=== PATIENT | female | born 1990 | race Caucasian/White ===

== ENCOUNTER 2017-10-20 11:19 | Observation (INO) | payer MEDICAID, SELFPAY | END 2017-10-22 09:33 | disposition home or self-care (01) | PROVIDERS: Admitting Provider Obstetrics & Gynecology; Emergency Provider Emergency Medicine; Family Provider Nurse Practitioner Family; Visit Provider Obstetrics & Gynecology | DX: O21.0 Mild hyperemesis gravidarum (principal); Z3A.09 9 weeks gestation of pregnancy | CPT/HCPCS: 36415; 76705; 76817; 80048; 80053; 80305; 81001; 82150; 83690; 84702; 84703; 85025; 87086; 96365; 96366; 96367; 99285; G0378; J2405 ==

== ENCOUNTER 2017-11-12 12:19 | Observation (INO) | payer MEDICAID, SELFPAY ==
[2017-11-12 12:20] VITALS: PULSE 90; RESP 14; O2SAT 98; BMI 21.6
[2017-11-12 12:54] LABS: Microscopic, Urine URINE MICROSCOPIC (MICROSCOPIC)
[2017-11-12 12:57] LABS: Appearance,Urine CLOUDY (Clear); Blood, Urine Negative (Negative); Color,Urine YELLOW (Yellow); Glucose,Urine (UA) Negative (Negative); Ketones,Urine 15 (Negative); Leukocyte Esterase,Urine TRACE (Negative); Nitrate,Urine Negative (Negative); Protein,Urine TRACE (Negative)
--- NOTE | 2017-11-12 13:04 | HMH.EDABDPAI ---
ED Disposition Clinical Impression: Hyperemesis Intractable nausea and vomiting Qualifiers: Vomiting type: unspecified Qualified Code(s): R11.2 - Nausea with vomiting, unspecified Disposition: Admitted As Inpatient Condition on Discharge: Fair Time of Disposition: 14:19 - Critical Care Critical Care Time: No Attestation: On 11/12/17, the high probability of a clinically significant, sudden or life threatening deterioration of the following system(s) required my full and direct attention, intervention and personal management. The time I documented below is in addition to time spent performing reported procedures but includes the following listed in this critical care notation. Medical Decision Making - Medical Records Medical records reviewed: Yes: I reviewed the patient's medical records. Vital Signs: 11/12/17 12:20 11/12/17 15:24 Temperature 98.1 F Temperature Source Oral Pulse Rate 98 H Pulse Rate [Right Brachial] 90 Respiratory Rate 14 14 Blood Pressure 122/74 Blood Pressure Source Automatic Cuff Blood Pressure Position Sitting 02 Sat by Pulse Oximetry 98 Oxygen Delivery Method Room Air Room Air - Lab Data Lab results reviewed: Yes: I reviewed the patient's lab results. Lab Results 11/12/17 12:53: Urine Color Yellow, Urine Appearance Cloudy, Urine pH 7.0, Ur Specific [place] 1.020, Urine Protein Trace, Urine Glucose (UA) Negative, Urine Ketones 15, Urine Blood Negative, Urine Nitrate Negative, Urine Bilirubin Negative, Urine Urobilinogen 1.0, Ur Leukocyte Esterase Trace, Urine RBC None, Urine WBC Occasional, Ur Squamous Epith Cells Tntc, Urine Bacteria 3+ 11/12/17 13:10: WBC 9.2, RBC 4.70, Hgb 11.4 L, Hct 35.5 L, MCV 75.6 L, MCH 24.4 L, MCHC 32.2, RDW 15.5, Plt Count 261, MPV 7.7, Neut % (Auto) 70.8, Lymph % (Auto) 21.1, [place] % (Auto) 5.0, Eos % (Auto) 2.8, Baso % (Auto) 0.2, Neut # (Auto) 6.5, Lymph # (Auto) 1.9, [place] # (Auto) 0.5, Eos # (Auto) 0.3, Baso # (Auto) 0.0 11/12/17 13:10: Sodium 133 L, Potassium 3.0 L, Chloride 98, Carbon Dioxide 26, Anion Gap 12.0, BUN 4 L, Creatinine 0.43 L, Estimated Creat Clear 180, Estimated GFR 174, Est GFR ( Amer) 210, Glucose 107 H, Calcium 8.7, Total Bilirubin 0.4, AST 21, ALT 27, Alkaline Phosphatase 66, Total Protein 7.3, Albumin 3.4, Globulin 3.9 H, Albumin/Globulin Ratio 0.9 L, Amylase 28, Lipase 64 L, HCG, Quant [id number] H Result diagrams: 11/12/17 13:10 11/12/17 13:10 Orders (Tests/Meds): ED MEDICATIONS Discontinued Medications Generic Name Dose Route Start Last Admin Trade Name Freq PRN Reason Stop Dose Admin Acetaminophen/Codeine Phosphate 1 each 11/12/17 20:24 11/13/17 22:45 Tylenol #3 Tablet PO 12/12/17 20:23 1 each Q4HP PRN Administration Moderate Pain Al Hydrox/Mg Hydrox/Simethicone 30 ml 11/14/17 06:06 11/14/17 05:50 Maalox 30ml Udc PO 12/14/17 06:05 30 ml Q6HP PRN Administration GI Upset Doxylamine Succinate/Pyridoxine 1 tab 11/13/17 09:00 11/13/17 13:50 Diclegis 10mg-10mg Tablet PO 12/13/17 08:59 1 tab 0700,1300 NIKOLAI Administration Doxylamine Succinate/Pyridoxine 2 tab 11/13/17 21:00 Diclegis 10mg-10mg Tablet PO 12/13/17 20:59 HS NIKOLAI Famotidine 20 mg 11/13/17 09:00 11/14/17 09:42 Pepcid 20mg/2ml Vial IV 12/13/17 08:59 20 mg BID NIKOLAI Administration Famotidine 20 mg 11/12/17 13:25 11/12/17 13:37 Pepcid 20mg/2ml Vial IV 11/12/17 13:26 20 mg ONCE ONE Administration Hydromorphone HCl 1 mg 11/13/17 10:00 11/14/17 09:40 Dilaudid 4mg/Ml Syringe IV 12/13/17 09:59 1 mg Q4HP PRN Administration Moderate Pain Sodium Chloride 1,000 mls @ 999 mls/hr 11/12/17 14:45 Sod Chloride 0.9% 1000ml Bag IV 11/12/17 15:45 .Q1H1M NIKOLAI Lactated Ringer's 1,000 mls @ 125 mls/hr 11/12/17 16:30 11/12/17 16:29 Lactated Ringer's 1000 Ml Bag IV 12/12/17 16:29 125 mls/hr .Q8H NIKOLAI Administration Lactated Ringer's 1,000 mls @ 125 mls
[2017-11-12 13:08] LABS: Bilirubin,Urine Negative (Negative)
[2017-11-12 13:15] LABS: Bacteria,Urine 3+ /lpf; Squamous Epithelial Cell,Urine TNTC #/hpf (0-5); WBC,Urine Occasional #/hpf (0-3)
[2017-11-12 13:40] LABS: Basophils % 0.2 % (0.1-2.0); Eosinophils # 0.3 K/mm3 (0.0-0.4); Eosinophils % 2.8 % (0.1-12.0); Hematocrit 35.5 % (37.0-47.0); Hemoglobin 11.4 g/dL (12.2-16.2); Lymphocytes # 1.9 K/mm3 (0.7-4.5); Lymphocytes % 21.1 K/mm3 (10-50); Mean Corpuscular HGB Conc 32.2 g/dL (31.8-35.4); Mean Corpuscular Hemoglobin 24.4 pg (27.0-31.2); Mean Corpuscular Volume 75.6 fl (81-99); Mean Platelet Volume 7.7 fl (7.4-10.4); Monocytes # 0.5 K/mm3 (0.1-1.0); Neutrophils # 6.5 K/mm3 (1.8-7.8); Neutrophils % 70.8 % (37.0-80.0); Platelet Count 261 K/mm3 (142-424); Red Cell Distribution Width 15.5 % (11.5-17.5); White Blood Count 9.2 K/mm3 (4.8-10.8)
[2017-11-12 13:57] LABS: Alanine Aminotransferase 27 U/L (12-78); Albumin Level 3.4 gm/dL (3.4-5.0); Albumin/Globulin Ratio 0.9 (1.1-1.8); Alkaline Phosphatase 66 U/L (46-116); Amylase 28 U/L (25-125); Aspartate Amino Transferase 21 U/L (15-37); Bilirubin,Total 0.4 mg/dL (0.2-1.0); Blood Urea Nitrogen 4 mg/dL (7-18); Calcium 8.7 mg/dL (8.5-10.1); Carbon Dioxide 26 mmol/L (21.0-32.0); Chloride 98 mmol/L (98-107); Creatinine Clearance Estimated 180 mL/min (0-300); Creatinine,Serum 0.43 mg/dL (0.55-1.02); Estimated Glomerular Filt Rate 174 ml/min (>60); GFR (African American) 210 ML/MIN (>60); Globulin 3.9 gm/dl (1.3-3.2); Glucose 107 mg/dL (74-106); Lipase 64 u/L (73-393); Sodium 133 mmol/L (136-145); Total Protein,Serum 7.3 gm/dL (6.4-8.2)
--- NOTE | 2017-11-12 14:16 | US_ITS ---
US OB transvaginal HISTORY: ITS.REASON: abdominal pain, nausea, voimting ORDERING PHYSICIAN: Edgardo Murray MD PATIENT AGE: 27 years COMPARISON: None FINDINGS: There is a single live intrauterine gestation with a crown-rump length of 5.7 cm in an estimated gestational age of 12 weeks 3 days. Estimated due date by ultrasound is 05/24/2018. heart tones are present with an FHR 134 bpm. motion is present. Yolk sac is noted. Chorion and amnion have not yet fused. There are 2 right ovarian cyst measuring 1.7 cm each IMPRESSION: Live IUP at 12 weeks 3 days
[2017-11-12 14:51] VITALS: BMI 216307.7
[2017-11-12 15:24] VITALS: BP 122/74; PULSE 98; RESP 14; TEMP 36.7; O2SAT 98
[2017-11-12 17:07] VITALS: BP 141/83; PULSE 75; RESP 18; TEMP 36.4; O2SAT 100; BMI 21.7
--- NOTE | 2017-11-13 08:39 | HMH.ACPN2 ---
Internal Medicine - PN: Subj *Date: 11/13/17 *Time: 08:39 Interval history: She continues to have nausea, vomiting and abdominal pain. She is asking for narcotic IV pain medicine. He has been given Tylenol No. 3. She says that she threw it up as soon as she took it. She complains of pain in her upper abdomen near her gallbladder. Exam Vital signs and Labs for Last 24 Hours: Temp Pulse Resp BP Pulse Ox 97.5 F L 75 18 141/83 100 11/12/17 17:07 11/12/17 17:07 11/12/17 17:07 11/12/17 17:07 11/12/17 17:07 I & O for Last 24 hours: Intake & Output 11/10/17 11/11/17 11/12/17 11/13/17 11:59 11:59 11:59 11:59 Weight 130 lb - Constitutional no acute distress Assessment and Plan - Assessment and plan all Dx Assessment and Plan for all problems:: We will make arrangements for her to have a gallbladder ultrasound today. We will start IV Zantac. We will start diclegis as well.
[2017-11-14 08:00] VITALS: BP 115/79; PULSE 80; RESP 18; TEMP 36.7; O2SAT 100
--- NOTE | 2017-11-14 10:59 | HMH.DCSUM ---
General - General Admission date: 11/12/17 Discharge date: 11/14/17 HPI HPI: She is a 27-year-old 6 para 4 who is 12 weeks gestational age. She has had intractable nausea vomiting as well as her abdominal pain and dyspepsia. As result that she was admitted for rehydration and control of her nausea vomiting. Objective Vital signs: Temp Pulse Resp BP Pulse Ox 97.5 F L 75 18 141/83 100 11/12/17 17:07 11/12/17 17:07 11/12/17 17:07 11/12/17 17:07 11/12/17 17:07 no acute distress Hospital Course Hospital Course: She was started on IV fluids as well as IV Phenergan. We started her on Pepcid as well for her dyspepsia. She seems to be doing well and has been eating and drinking and ambulating. She has a previous history of drug abuse and is hep C positive. We have given her IV Dilaudid for her dyspepsia as well. She will receive Tylenol 3 when she goes home. I told her I would not give her any more of the strong narcotics given her past history of narcotic abuse. Meds Home Medications Medication Instructions Recorded Confirmed Type Pnv95/Iron Fum/Folic Acid 1 each PO DAILY 11/12/17 11/12/17 History [ Tablet] Allergies Allergy/AdvReac Type Severity Reaction Status Date / Time aspirin [ASPIRIN] Allergy Unknown CAUSES Verified 11/12/17 13:24 SEIZURES ketorolac [KETOROLAC] Allergy Unknown HEADACHES Verified 11/12/17 13:24 Discharge Plan - Patient Discharge Instructions ACTIVITY: Continue current activity DIET: continue same diet - Follow up Plan Disposition: Home, Self-Group Home Medications: Home Medications Medication Instructions Recorded Confirmed Type Pnv95/Iron Fum/Folic Acid 1 each PO DAILY 11/12/17 11/12/17 History [ Tablet] Prescriptions/Medication Reconciliation: New Promethazine HCl [Phenergan 12.5mg tablet] 12.5 mg PO Q4-6H PRN #20 tablet PRN Reason: Nausea Promethazine HCl [Phenergan 12.5mg Suppository] 0 mg * Q4H #12 supp.rect Acetaminophen with Codeine [Tylenol with Codeine #3 tablet] 1 tab PO Q4H PRN #20 tablet PRN Reason: Mild To Moderate Pain Continue Pnv95/Iron Fum/Folic Acid [ Tablet] 1 each PO DAILY
--- NOTE | 2017-11-18 11:53 | HMH.OBAPHP ---
OB - H&P: HPI Antepartum - History of Present Illness Chief complaint: Nausea and vomiting, dehydration - History of Present Criteria for establishing EDC:: LMP confirmed by 1st trimester US care: none Ultrasounds: normal 1st trimester US Obstetrical complications: other (Hepatitis C positive) Medical complications: none HMH History Medical History: Denies:: Cancer, Diabetes Mellitus Type 1, Diabetes Mellitus Type 2, MRSA Amputation: No Fractures: No - *Social History Educational Level: Completed High School Smoking Status: Current every day smoker Tobacco Type: cigarettes Alcohol Intake: never Substance Use Type: marijuana Last Used Substance: days (ago) Occupational Status: previously employed - Psychiatric History Expresses thoughts of harming self/others: None Suicide Plan Description: No Plan *Family Hx:: No significant family history Para: 5 Review of Systems - Constitutional Reports anorexia, Reports fatigue - *Gastrointestinal Reports vomiting Meds Home Medications Medication Instructions Recorded Confirmed Type Pnv95/Iron Fum/Folic Acid 1 each PO DAILY 11/12/17 11/12/17 History [ Tablet] Allergies Allergy/AdvReac Type Severity Reaction Status Date / Time aspirin [ASPIRIN] Allergy Unknown CAUSES Verified 11/12/17 13:24 SEIZURES ketorolac [KETOROLAC] Allergy Unknown HEADACHES Verified 11/12/17 13:24 OB - H&P: Exam - Physical Exam Vital signs: Temp Pulse Resp BP Pulse Ox 98.1 F 80 18 115/79 100 11/14/17 08:00 11/14/17 08:00 11/14/17 08:00 11/14/17 08:00 11/14/17 08:00 - Constitutional no acute distress OB - A/P Antepartum (1) Hyperemesis affecting , antepartum Status: Acute - Additional Plan Plan: expectant management (We have admitted her for rehydration and antiemetic)
== END 2017-11-14 11:00 | disposition home or self-care (01) ==
LOC: ER 14:19 → OB 16:24
PROVIDERS: Admitting Provider Obstetrics & Gynecology; Emergency Provider Emergency Medicine; Family Provider Nurse Practitioner Family; Visit Provider Nurse Practitioner Obstetrics & Gynecology
DX: O21.0 Mild hyperemesis gravidarum (principal); Z3A.12 12 weeks gestation of pregnancy; Z72.0 Tobacco use; F12.90 Cannabis use, unspecified, uncomplicated; O98.419 Viral hepatitis complicating pregnancy, unspecified trimester; B19.20 Unspecified viral hepatitis C without hepatic coma
CPT/HCPCS: 76830; 80053; 81001; 82150; 83690; 84702; 85025; 87086; 96374; 96375; 99283; G0378

== ENCOUNTER 2017-11-30 11:47 | Observation (INO) | payer MEDICAID, SELFPAY ==
[2017-11-30 11:49] VITALS: BP 123/65; PULSE 74; RESP 18; TEMP 36.8; O2SAT 97; BMI 23.3
[2017-11-30 12:36] VITALS: BMI 23.3
[2017-11-30 12:43] LABS: Appearance,Urine CLEAR (Clear); Blood, Urine Negative (Negative); Color,Urine YELLOW (Yellow); Glucose,Urine (UA) Negative (Negative); Ketones,Urine 3+ (Negative); Leukocyte Esterase,Urine Negative (Negative); Microscopic, Urine URINE MICROSCOPIC (MICROSCOPIC); Nitrate,Urine Negative (Negative); Protein,Urine 1+ (Negative); Specific Gravity, Urine >= 1.030 (1.005-1.030); Urobilinogen,Urine 0.2 EU/dl (0.2)
[2017-11-30 12:47] LABS: Basophils % 0.1 % (0.1-2.0); Eosinophils % 0.2 % (0.1-12.0); Hematocrit 36.4 % (37.0-47.0); Hemoglobin 11.7 g/dL (12.2-16.2); Lymphocytes # 1.1 K/mm3 (0.7-4.5); Lymphocytes % 9.4 K/mm3 (10-50); Mean Corpuscular Hemoglobin 24.7 pg (27.0-31.2); Mean Corpuscular Volume 77.2 fl (81-99); Mean Platelet Volume 7.5 fl (7.4-10.4); Monocytes # 0.2 K/mm3 (0.1-1.0); Monocytes % 2.1 % (1.7-9.3); Neutrophils # 10.2 K/mm3 (1.8-7.8); Neutrophils % 88.2 % (37.0-80.0); Platelet Count 294 K/mm3 (142-424); Red Blood Count 4.72 M/mm3 (4.20-5.40); Red Cell Distribution Width 16.4 % (11.5-17.5); White Blood Count 11.6 K/mm3 (4.8-10.8)
[2017-11-30 12:50] LABS: Bilirubin,Urine Negative (Negative); Urine Pregnancy, HCG Qual. Positive (Negative)
[2017-11-30 12:52] LABS: MANUAL DIFFERENTIAL MANUAL DIFFERENTIAL (MANUAL DIFF)
[2017-11-30 12:56] LABS: Alanine Aminotransferase 24 U/L (12-78); Albumin Level 3.7 gm/dL (3.4-5.0); Albumin/Globulin Ratio 0.9 (1.1-1.8); Alkaline Phosphatase 68 U/L (46-116); Amylase 31 U/L (25-125); Anion Gap 14.9 mEq/L (5-15); Aspartate Amino Transferase 16 U/L (15-37); Bilirubin,Total 0.7 mg/dL (0.2-1.0); Blood Urea Nitrogen 7 mg/dL (7-18); Calcium 8.9 mg/dL (8.5-10.1); Carbon Dioxide 24 mmol/L (21.0-32.0); Chloride 99 mmol/L (98-107); Creatinine Clearance Estimated 185 mL/min (0-300); Creatinine,Serum 0.45 mg/dL (0.55-1.02); Estimated Glomerular Filt Rate 165 ml/min (>60); GFR (African American) 199 ML/MIN (>60); Globulin 4.3 gm/dl (1.3-3.2); Glucose 109 mg/dL (74-106); Lipase 70 u/L (73-393); Sodium 135 mmol/L (136-145)
[2017-11-30 12:57] LABS: Bacteria,Urine 4+ /lpf; Mucus,Urine 3+ /lpf; WBC,Urine Occasional #/hpf (0-3)
[2017-11-30 13:00] LABS: Potassium 2.9 mmoL/L (3.5-5.1)
--- NOTE | 2017-11-30 13:20 | PC.NURSE ---
Received report from Jose Florez RN in the ER at this time.
[2017-11-30 13:24] VITALS: BP 124/65; PULSE 73; RESP 16; TEMP 36.8; O2SAT 97
[2017-11-30 13:30] VITALS: BP 120/68; PULSE 88; RESP 18; TEMP 36.7; O2SAT 98
--- NOTE | 2017-11-30 13:40 | PC.NURSE ---
CALLED DR. BENSON TO NOTIFY HIM OF PATIENTS POTASSIUM LEVEL OF 2.9. NOTIFIED HIM OF PATIENTS PAIN A 08/04 AND THAT STATED SHE HAS ABDOMINAL PAIN. MD STATED SHE CAN HAVE TYLENOL 650MG PO EVERY 4 HOURS, PEPCID 20MG IV DAILY FOR STOMACH PAIN, START 0.9% NS WITH 20 POTASSIUM @125ML/HR AND DAILY BAG OF RALLY PACK. R/V
[2017-11-30 14:12] LABS: Lymphocytes % 10 % (10-50); Monocytes % 2 % (2-9); Neutrophils % 87 % (42-76); Platelet Estimate Normal; RBC Morphology Normal; Total Cells Counted 100
[2017-11-30 14:20] VITALS: O2SAT 100
--- NOTE | 2017-11-30 16:02 | HMH.EDNVD ---
ED Disposition Clinical Impression: Intractable Nausea/Vomiting, Dehydration Disposition: Admitted As Inpatient Condition on Discharge: Good Time of Disposition: 14:30 - Critical Care Critical Care Time: No Attestation: On 11/30/17, the high probability of a clinically significant, sudden or life threatening deterioration of the following system(s) required my full and direct attention, intervention and personal management. The time I documented below is in addition to time spent performing reported procedures but includes the following listed in this critical care notation. Medical Decision Making - Medical Records Medical records reviewed: Yes: I reviewed the patient's medical records. Vital Signs: 11/30/17 11:49 11/30/17 13:24 Temperature 98.2 F 98.2 F Temperature Source Oral Pulse Rate 73 Pulse Rate [Right Brachial] 74 Respiratory Rate 18 16 Blood Pressure 124/65 Blood Pressure [Right Arm] 123/65 Blood Pressure Mean [Right Arm] 84 Blood Pressure Source [Right Arm] Automatic Cuff Blood Pressure Position [Right Arm] Sitting 02 Sat by Pulse Oximetry 97 Oxygen Delivery Method Room Air - Lab Data Lab results reviewed: Yes: I reviewed the patient's lab results. Lab Results 11/30/17 12:35: Urine Color Yellow, Urine Appearance Clear, Urine pH 6.0, Ur Specific [place] >= 1.030, Urine Protein 1+, Urine Glucose (UA) Negative, Urine Ketones 3+, Urine Blood Negative, Urine Nitrate Negative, Urine Bilirubin Negative, Urine Urobilinogen 0.2, Ur Leukocyte Esterase Negative, Urine RBC None, Urine WBC Occasional, Ur Squamous Epith Cells 3-5, Urine Bacteria 4+, Urine Mucus 3+ 11/30/17 12:35: WBC 11.6 H, RBC 4.72, Hgb 11.7 L, Hct 36.4 L, MCV 77.2 L, MCH 24.7 L, MCHC 32.0, RDW 16.4, Plt Count 294, MPV 7.5, Neut % (Auto) 88.2 H, Lymph % (Auto) 9.4 L, [place] % (Auto) 2.1, Eos % (Auto) 0.2, Baso % (Auto) 0.1, Neut # (Auto) 10.2 H, Lymph # (Auto) 1.1, [place] # (Auto) 0.2, Eos # (Auto) 0.0, Baso # (Auto) 0.0, Total Counted 100, Neutrophils % (Manual) 87 H, Lymphocytes % (Manual) 10, Monocytes % (Manual) 2, Metamyelocytes % 1.0, Platelet Estimate Normal, RBC Morphology Normal 11/30/17 12:35: Urine HCG, Qual Positive 11/30/17 12:35: Sodium 135 L, Potassium 2.9 L*, Chloride 99, Carbon Dioxide 24, Anion Gap 14.9, BUN 7, Creatinine 0.45 L, Estimated Creat Clear 185, Estimated GFR 165, Est GFR ( Amer) 199, Glucose 109 H, Calcium 8.9, Total Bilirubin 0.7, AST 16, ALT 24, Alkaline Phosphatase 68, Total Protein 8.0, Albumin 3.7, Globulin 4.3 H, Albumin/Globulin Ratio 0.9 L, Amylase 31, Lipase 70 L Result diagrams: 11/30/17 12:35 11/30/17 12:35 Orders (Tests/Meds): ED MEDICATIONS Generic Name Dose Route Start Last Admin Trade Name Freq PRN Reason Stop Dose Admin Acetaminophen 650 mg 11/30/17 15:08 Acetaminophen 325mg Tab PO 12/30/17 13:47 Q4HP PRN Mild to Moderate Pain Doxylamine Succinate/Pyridoxine 1 tab 11/30/17 21:00 Diclegis 10mg-10mg Tablet PO 12/30/17 20:59 BID NIKOLAI Famotidine 20 mg 11/30/17 21:00 Pepcid 20mg/2ml Vial IV 12/30/17 20:59 BID NIKOLAI Folic Acid 1 mg 12/01/17 09:00 Folic Acid 1mg Tablet PO 12/31/17 08:59 DAILY [facility] Potassium Chloride/Sodium Chloride 1,000 mls @ 125 mls/hr 11/30/17 15:08 Kcl 20 Meq In Ns 1,000 Ml Iv Soln IV 12/30/17 13:59 .Q8H NIKOLAI Multivitamins 10 ml/ Thiamine 1,015 mls @ 125 mls/hr 11/30/17 15:15 11/30/17 15:25 HCl 100 mg/ Magnesium Sulfate IV 12/30/17 15:14 125 mls/hr 2 gm/ Lactated Ringer's DAILY NIKOLAI Administration Multivit/Folic Acid/Iron 1 each 11/30/17 17:00 Mvi W/Iron Tablet PO 12/30/17 16:59 1700 [facility] Promethazine HCl 12.5 mg 11/30/17 15:08 Phenergan 25mg/Ml 1ml Vial IV 12/30/17 12:38 Q4HP PRN Nausea And Vomiting Sodium Chloride 25 ml 11/30/17 15:08 Sod Chloride 0.9% 25ml Bag IV 12/30/17 15:07 NEEDED PRN for Use
--- NOTE | 2017-11-30 16:05 | ED_ITS ---
ED Disposition Clinical Impression: Intractable Nausea/Vomiting, Dehydration Disposition: Admitted As Inpatient Condition on Discharge: Good Time of Disposition: 14:30 - Critical Care Critical Care Time: No Attestation: On 11/30/17, the high probability of a clinically significant, sudden or life threatening deterioration of the following system(s) required my full and direct attention, intervention and personal management. The time I documented below is in addition to time spent performing reported procedures but includes the following listed in this critical care notation. Medical Decision Making - Medical Records Medical records reviewed: Yes: I reviewed the patient's medical records. Vital Signs: 11/30/17 11:49 11/30/17 13:24 Temperature 98.2 F 98.2 F Temperature Source Oral Pulse Rate 73 Pulse Rate [Right Brachial] 74 Respiratory Rate 18 16 Blood Pressure 124/65 Blood Pressure [Right Arm] 123/65 Blood Pressure Mean [Right Arm] 84 Blood Pressure Source [Right Arm] Automatic Cuff Blood Pressure Position [Right Arm] Sitting 02 Sat by Pulse Oximetry 97 Oxygen Delivery Method Room Air - Lab Data Lab results reviewed: Yes: I reviewed the patient's lab results. Lab Results 11/30/17 12:35: Urine Color Yellow, Urine Appearance Clear, Urine pH 6.0, Ur Specific [place] >= 1.030, Urine Protein 1+, Urine Glucose (UA) Negative, Urine Ketones 3+, Urine Blood Negative, Urine Nitrate Negative, Urine Bilirubin Negative, Urine Urobilinogen 0.2, Ur Leukocyte Esterase Negative, Urine RBC None , Urine WBC Occasional, Ur Squamous Epith Cells 3-5, Urine Bacteria 4+, Urine Mucus 3+ 11/30/17 12:35: WBC 11.6 H, RBC 4.72, Hgb 11.7 L, Hct 36.4 L, MCV 77.2 L, MCH 24.7 L, MCHC 32.0, RDW 16.4, Plt Count 294, MPV 7.5, Neut % (Auto) 88.2 H, Lymph % (Auto) 9.4 L, [place] % (Auto) 2.1, Eos % (Auto) 0.2, Baso % (Auto) 0.1, Neut # (Auto) 10.2 H, Lymph # (Auto) 1.1, [place] # (Auto) 0.2, Eos # (Auto) 0.0, Baso # (Auto) 0.0, Total Counted 100, Neutrophils % (Manual) 87 H, Lymphocytes % (Manual) 10, Monocytes % (Manual) 2, Metamyelocytes % 1.0, Platelet Estimate Normal, RBC Morphology Normal 11/30/17 12:35: Urine HCG, Qual Positive 11/30/17 12:35: Sodium 135 L, Potassium 2.9 L*, Chloride 99, Carbon Dioxide 24, Anion Gap 14.9, BUN 7, Creatinine 0.45 L, Estimated Creat Clear 185, Estimated GFR 165, Est GFR ( Amer) 199, Glucose 109 H, Calcium 8.9, Total Bilirubin 0.7, AST 16, ALT 24, Alkaline Phosphatase 68, Total Protein 8.0, Albumin 3.7, Globulin 4.3 H, Albumin/Globulin Ratio 0.9 L, Amylase 31, Lipase 70 L Result diagrams: 11/30/17 12:35 11/30/17 12:35 Orders (Tests/Meds): ED MEDICATIONS Generic Name Dose Route Start Last Admin Trade Name Freq PRN Reason Stop Dose Admin Acetaminophen 650 mg 11/30/17 15:08 Acetaminophen 325mg Tab PO 12/30/17 13:47 Q4HP PRN Mild to Moderate Pain Doxylamine Succinate/Pyridoxine 1 tab 11/30/17 21:00 Diclegis 10mg-10mg Tablet PO 12/30/17 20:59 BID NIKOLAI Famotidine 20 mg 11/30/17 21:00 Pepcid 20mg/2ml Vial IV 12/30/17 20:59 BID NIKOLAI Folic Acid 1 mg 12/01/17 09:00 Folic Acid 1mg Tablet PO 12/31/17 08:59 DAILY NIKOLAI Potassium Chloride/Sodium Chloride 1,000 mls @ 125 mls/hr 11/30/17 15:08 Kcl 20 Meq In Ns 1,000 Ml Iv Soln IV 12/30/17 13:59
--- NOTE | 2017-11-30 16:29 | PC.NURSE ---
PATIENT IS A NEW ADMISSION FROM ER. PT. HAS COMPLAINED OF ABDOMINAL PAIN THROUGHOUT THE AFTERNOON. PT. RATES PAIN A 10/10 WHILE LYING IN BED. REPORTS NAUSEA AND IS REQUESTING PAIN MEDICATION. EXPLAINED TO PATIENT THAT SHE HAS TYLENOL ORDERED. PT. DENIED THIS MEDICATION. LUNGS WERE CTA AND BOWEL SOUNDS HYPOACTIVE. PT. REPORTS STOMACH TO BE TENDER TO TOUCH. EDUCATED PATIENT THAT SHE SHOULD NOT TRY TO KEEP EATING OR DRINKING IF SHE IS VOMITING EVERYTHING UP. STARTED PATIENTS RALLY PACK THIS AFTERNOON. PATIENT HAS RESTED ON AND OFF. PT. REQUESTING ANOTHER SHOWER AT THIS TIME, EXPLAINED THAT WE NEEDED TO GET THE RALLY PACK IN HER FIRST. VITALS REMAINED STABLE. CALL LIGHT WITHIN REACH AND SAFETY MEASURES IN PLACE. WILL CONTINUE TO MONITOR.
--- NOTE | 2017-11-30 16:29 | HMH.OBAPHP ---
OB - H&P: HPI Antepartum - History of Present Illness Chief complaint: Intractable nausea vomiting and dehydration - History of Present Criteria for establishing EDC:: LMP confirmed by 1st trimester US care: limited care Ultrasounds: normal 1st trimester US Obstetrical complications: hyperemesis Medical complications: none HMH History Medical History: Denies:: Cancer, Diabetes Mellitus Type 1, Diabetes Mellitus Type 2, Internal Pacemaker, MRSA Other Surgeries: No: Pacemaker Amputation: No Fractures: No - *Social History Educational Level: Attended High School Smoking Status: Current every day smoker Tobacco Type: cigarettes Alcohol Intake: never Substance Use Type: marijuana Last Used Substance: hours (ago) Occupational Status: previously employed Household Members: children - Psychiatric History Expresses thoughts of harming self/others: None Suicide Plan Description: No Plan *Family Hx:: No significant family history Review of Systems - Constitutional Reports anorexia - *Gastrointestinal Reports abdominal pain, Reports change in bowel habits, Reports heartburn, Reports heartburn Meds Home Medications Medication Instructions Recorded Confirmed Type Pnv95/Iron Fum/Folic Acid 1 each PO DAILY 11/12/17 11/30/17 History [ Tablet] Promethazine HCl [Phenergan 12.5mg 12.5 mg RC Q4H 11/30/17 11/30/17 History Suppository] raNITIdine HCl [Ranitidine HCl] 150 mg PO BID 11/30/17 11/30/17 History Allergies Allergy/AdvReac Type Severity Reaction Status Date / Time aspirin [ASPIRIN] Allergy Unknown CAUSES Verified 11/12/17 13:24 SEIZURES ketorolac [KETOROLAC] Allergy Unknown HEADACHES Verified 11/12/17 13:24 OB - H&P: Exam - Physical Exam Vital signs: Temp Pulse Resp BP Pulse Ox 98.1 F 88 18 120/68 100 11/30/17 13:30 11/30/17 13:30 11/30/17 13:30 11/30/17 13:30 11/30/17 14:20 - Constitutional no acute distress - Routine HEENT Exam Head: Present: normocephalic - Routine Neck Exam Present: supple OB - A/P Antepartum (1) Hypokalemia due to loss of potassium Current visit: Yes Status: Acute - Additional Plan Plan: other (We will admit her for rehydration and control of nausea vomiting)
[2017-11-30 16:30] VITALS: BP 129/81; PULSE 79; RESP 16; TEMP 36.7; O2SAT 100
[2017-11-30 16:51] LABS: Amphetamine/Metha Screen,Urine Negative ng/mL (<1000); Barbiturates Screen,Urine Negative ng/mL (<200); Benzodiazepines Screen,Urine Negative ng/mL (200); Cannabinoid Screen,Urine Positive ng/mL (<50); Cocaine Screen,Urine Negative ng/g (<300); Methadone Screen,Urine Negative ng/mL (<300); Opiate Screen,Urine Positive ng/mL (<300); Phencyclidine Screen,Urine Negative ng/mL (<25)
--- NOTE | 2017-11-30 16:55 | PC.NURSE ---
DR. BENSON STATED TO DO FHT DAILY ON PATIENT. R/V MD AT BEDSIDE
--- NOTE | 2017-11-30 17:40 | PC.NURSE ---
FHT AUSCULTATED USING DOPPLER AROUND 140-145'S.
--- NOTE | 2017-11-30 17:40 | PC.NURSE ---
WHILE TAKING DINNER TRAY TO PATIENT, SHE STATES SHE IS FEELING NAUSEOUS. ORDERED PROMETHAZINE GIVEN IV 12.5MG OVER 15 MINUTES. PATIENT ALSO REQUESTS A HEATING PAD. HEATING PAD TAKEN TO PATIENT. WHILE TURNING HEATING PAD ON PATIENT STATES CAN YOU JUST WRAP THIS IV UP SO I CAN SHOWER. TOLD PATIENT WE WOULD HAVE TO WAIT UNTIL THE PROMETHAZINE WAS FINISHED AND THAT THE PROMETHAZINE MAY MAKE YOU DROWSY THAT IS WASN'T BEST FOR HER TO GET IN THE SHOWER. WILL REINFORCE NEEDED.
--- NOTE | 2017-11-30 18:58 | PC.NURSE ---
HANDOFF GIVEN TO JOHN LYONS
--- NOTE | 2017-11-30 19:35 | PC.NURSE ---
REPORT RECEIVED FROM ELOY KIRKPATRICK.
--- NOTE | 2017-11-30 20:40 | PC.NURSE ---
PHENERGAN 12.5MG IVPB (25MLS NS) HUNG PER PT REQUEST FOR NAUSEA.
--- NOTE | 2017-11-30 21:35 | PC.NURSE ---
SPOKE WITH CONCERNING PT WANTING SOMETHING STRONGER THAN TYLENOL FOR PAIN. PHONE ORDER RECEIVED FOR PERCOCET 5/325MG PO Q4HR PRN. ORDER REPEATED AND VERIFIED. PT SLEEPING AT THIS TIME..
--- NOTE | 2017-11-30 22:50 | PC.NURSE ---
PT RANG OUT FOR PAIN MEDICATION. HAD BEEN UP TO SHOWER AGAIN.. RATES PAIN AT 10/10 ON PAIN SCALE AND WAS MEDICATED WITH PERCOCET 5/325 1 TAB PO.
--- NOTE | 2017-11-30 23:20 | PC.NURSE ---
PT ASLEEP ON STOMACH UPON ENTERING ROOM. PAIN NOW 0/10.
--- NOTE | 2017-12-01 00:35 | PC.NURSE ---
IV MULTI-VITAMIN RALLY BAG INFUSION COMPLETE. IV FLUIDS SWITCHED BACK OVER AT THIS TIME.
[2017-12-01 01:51] VITALS: BMI 25.4
[2017-12-01 08:00] VITALS: BP 142/89; PULSE 80; RESP 17; TEMP 36.8; O2SAT 99
--- NOTE | 2017-12-01 08:20 | HMH.ACPN2 ---
Internal Medicine - PN: Subj *Date: 12/01/17 *Time: 08:20 Interval history: She continues to have some nausea and vomiting. She complains of epigastric pain. She denies any fever or chills. She did reasonably well overnight and did have some gagging this morning. She is however eating and drinking and ambulating. Exam Vital signs and Labs for Last 24 Hours: Temp Pulse Resp BP Pulse Ox 98.1 F 79 16 129/81 100 11/30/17 16:30 11/30/17 16:30 11/30/17 16:30 11/30/17 16:30 11/30/17 16:30 I & O for Last 24 hours: Intake & Output 11/28/17 11/29/17 11/30/17 12/01/17 11:59 11:59 11:59 11:59 Intake Total 1405 / 1405 Balance 1405 / 1405 Weight 148 lb - Constitutional no acute distress Assessment and Plan (1) Hypokalemia due to loss of potassium Current visit: Yes Status: Acute Category: Medical Code(s): E87.6 - Hypokalemia - Assessment and plan all Dx Assessment and Plan for all problems:: We will continue to observe her and give her fluids. We will give her IV Phenergan. I am limiting the amount of narcotics she is receiving because of her past history of narcotic abuse.
--- NOTE | 2017-12-01 09:29 | PC.NURSE ---
pt requested up to shower, states makes me feel alittle better , wrapped IV , pt in shower
--- NOTE | 2017-12-01 10:09 | PC.NURSE ---
pt called out reporting IV leaking fluid; site unremarkable but leaking and not blood return noted; Will restart IV when finishing shower
--- NOTE | 2017-12-01 11:05 | PC.NURSE ---
Dr. Murray requested to find out what drugs she was taking, why tox screen positive. Discussed with patient; she reports smokes pot and was taking tynelol #3 that he prescribed from last visit from hospital admission.
[2017-12-01 11:09] LABS: Anion Gap 16.1 mEq/L (5-15); Blood Urea Nitrogen 4 mg/dL (7-18); Carbon Dioxide 24 mmol/L (21.0-32.0); Chloride 99 mmol/L (98-107); Creatinine Clearance Estimated 209 mL/min (0-300); Creatinine,Serum 0.42 mg/dL (0.55-1.02); Estimated Glomerular Filt Rate 178 ml/min (>60); GFR (African American) 216 ML/MIN (>60); Glucose 95 mg/dL (74-106); Potassium 3.1 mmoL/L (3.5-5.1); Sodium 136 mmol/L (136-145)
[2017-12-01 18:30] VITALS: BP 148/90; PULSE 88; RESP 16; TEMP 36.8; O2SAT 97
--- NOTE | 2017-12-01 18:56 | PC.NURSE ---
pt has ongoing been turning silence off IV pump, and because of issue, taking more time to run Multivitamins in, requested to call us when pump is off to get restarted . Pt verbalized understanding.
[2017-12-02 08:00] VITALS: BP 129/86; PULSE 89; TEMP 36.8; O2SAT 99
--- NOTE | 2017-12-02 08:46 | HMH.DCSUM ---
General - General Admission date: 11/30/17 Discharge date: 12/02/17 HPI HPI: She is a 27-year-old 6 para 4 aborta 1 who is 13 weeks gestational age. She came in with severe nausea vomiting and dehydration. She had hypokalemia as well. As result of that she was admitted for IV fluids. Objective Vital signs: Temp Pulse Resp BP Pulse Ox 98.3 F 89 16 129/86 99 12/02/17 08:00 12/02/17 08:00 12/01/17 18:30 12/02/17 08:00 12/02/17 08:00 no acute distress Hospital Course Hospital Course: She received IV fluids as well as IV potassium. She has received that as well. She is doing much better this morning and will be discharged home. Results Labs on day of discharge: Labs from last 24 hours 12/01/17 10:45 Sodium 136 Potassium 3.1 L Chloride 99 Carbon Dioxide 24 Anion Gap 16.1 H BUN 4 L D Creatinine 0.42 L Estimated Creat Clear 209 Estimated GFR 178 Est GFR ( Amer) 216 Glucose 95 DS: Diagnosis - Discharge Diagnosis (1) Hypokalemia due to loss of potassium Status: Acute Meds Home Medications Medication Instructions Recorded Confirmed Type Pnv95/Iron Fum/Folic Acid 1 each PO DAILY 11/12/17 11/30/17 History [ Tablet] Promethazine HCl [Phenergan 12.5mg 12.5 mg RC Q4HP PRN 11/30/17 12/01/17 History Suppository] raNITIdine HCl [Ranitidine HCl] 150 mg PO BID 11/30/17 11/30/17 History Acetaminophen with Codeine 1 tab PO Q4HP PRN 12/01/17 12/01/17 History [Tylenol with Codeine #3 tablet] Allergies Allergy/AdvReac Type Severity Reaction Status Date / Time aspirin [ASPIRIN] Allergy Unknown CAUSES Verified 11/12/17 13:24 SEIZURES ketorolac [KETOROLAC] Allergy Unknown HEADACHES Verified 11/12/17 13:24 Discharge Plan - Patient Discharge Instructions ACTIVITY: Continue current activity DIET: continue same diet Patient Instructions: DI for Diarrhea and Traveler's Diarrhea -- Adult, DI for Diarrhea and Traveler's Diarrhea -- Child, DI for Nausea -- Adult, DI for Nausea -- Child - Follow up Plan Follow up with: Cheryle Vargas [Primary Care Provider] - Disposition: Home, Self-Half-Way Medications: Home Medications Medication Instructions Recorded Confirmed Type Pnv95/Iron Fum/Folic Acid 1 each PO DAILY 11/12/17 11/30/17 History [ Tablet] Promethazine HCl [Phenergan 12.5mg 12.5 mg RC Q4HP PRN 11/30/17 12/01/17 History Suppository] raNITIdine HCl [Ranitidine HCl] 150 mg PO BID 11/30/17 11/30/17 History Acetaminophen with Codeine 1 tab PO Q4HP PRN 12/01/17 12/01/17 History [Tylenol with Codeine #3 tablet] Prescriptions/Medication Reconciliation: Continue Promethazine HCl [Phenergan 12.5mg tablet] 12.5 mg PO Q4-6H PRN #20 tab PRN Reason: Nausea raNITIdine HCl [Ranitidine HCl] 150 mg PO BID Pnv95/Iron Fum/Folic Acid [ Tablet] 1 each PO DAILY Promethazine HCl [Phenergan 12.5mg Suppository] 12.5 mg RC Q4HP PRN #12 supp.rect PRN Reason: nausea/vomiting Discontinued Acetaminophen with Codeine [Tylenol with Codeine #3 tablet] 1 tab PO Q4HP PRN PRN Reason: Mild To Moderate Pain
--- NOTE | 2017-12-02 09:16 | PC.NURSE ---
Completed discharge instructions with patient, pt verbalized understanding and had no questions at this time, awaiting ride to go home
== END 2017-12-02 10:05 | disposition home or self-care (01) ==
LOC: ER 12:35 → OB 13:24
PROVIDERS: Admitting Provider Nurse Practitioner Obstetrics & Gynecology; Emergency Provider Emergency Medicine; Family Provider Nurse Practitioner Family; PCP Nurse Practitioner Pediatrics; Visit Provider Nurse Practitioner Obstetrics & Gynecology
DX: O21.1 Hyperemesis gravidarum with metabolic disturbance (principal); Z3A.13 13 weeks gestation of pregnancy
CPT/HCPCS: 80048; 80053; 80305; 81001; 81025; 82150; 83690; 85007; 85025; 87086; 93971; 96365; 96375; 99281; 99291; G0378

== ENCOUNTER 2017-12-30 11:59 | Observation (INO) | payer MEDICAID, SELFPAY ==
[2017-12-30 12:09] VITALS: BP 147/85; PULSE 88; RESP 20; TEMP 36.8; O2SAT 98; BMI 22.9
--- NOTE | 2017-12-30 12:17 | HMH.EDGENADL ---
ED Disposition Clinical Impression: Vomiting affecting , Dehydration, Hypokalemia Disposition: Still a Patient Condition on Discharge: Fair - Critical Care Critical Care Time: No Attestation: On , the high probability of a clinically significant, sudden or life threatening deterioration of the following system(s) required my full and direct attention, intervention and personal management. The time I documented below is in addition to time spent performing reported procedures but includes the following listed in this critical care notation. Medical Decision Making Vital Signs: 12/30/17 12:09 12/30/17 12:31 Temperature 98.3 F Temperature Source Oral Pulse Rate [Right Brachial] 88 80 Respiratory Rate 20 20 Blood Pressure [Right Arm] 147/85 112/78 Blood Pressure Mean [Right Arm] 105 89 Blood Pressure Source [Right Arm] Automatic Cuff Automatic Cuff Blood Pressure Position [Right Arm] Sitting Supine 02 Sat by Pulse Oximetry 98 100 Oxygen Delivery Method Room Air Room Air - Lab Data Lab Results 12/30/17 12:20: Urine Color Yellow, Urine Appearance Cloudy, Urine pH 7.5, Ur Specific [place] 1.015, Urine Protein Negative, Urine Glucose (UA) Negative, Urine Ketones 2+, Urine Blood Negative, Urine Nitrate Negative, Urine Bilirubin Negative, Urine Urobilinogen 0.2, Ur Leukocyte Esterase 2+ A, Urine RBC None, Urine WBC 5-10, Ur Squamous Epith Cells 10-20, Urine Bacteria 2+ 12/30/17 12:20: WBC 10.6, RBC 4.23, Hgb 10.9 L, Hct 33.9 L, MCV 80.0 L, MCH 25.7 L, MCHC 32.1, RDW 16.4, Plt Count 277, MPV 7.9, Neut % (Auto) 79.3, Lymph % (Auto) 15.3, [place] % (Auto) 4.1, Eos % (Auto) 1.4, Baso % (Auto) 0.1, Neut # (Auto) 8.4 H, Lymph # (Auto) 1.6, [place] # (Auto) 0.4, Eos # (Auto) 0.1, Baso # (Auto) 0.0 12/30/17 12:20: Sodium 136, Potassium 3.0 L, Chloride 102, Carbon Dioxide 25, Anion Gap 12.0, BUN 3 L, Creatinine 0.44 L, Estimated Creat Clear 186, Estimated GFR 169, Est GFR ( Amer) 205, Glucose 103, Calcium 8.5, Total Bilirubin 0.3, AST 17, ALT 22, Alkaline Phosphatase 55, Total Protein 7.0, Albumin 3.2 L, Globulin 3.8 H, Albumin/Globulin Ratio 0.8 L 12/30/17 12:20: Lipase 57 L 12/30/17 12:30: Urine Opiates Screen Negative, Ur Barbituates Screen Negative, Ur Phencyclidine Scrn Negative, Ur Amphetamines Screen Negative, U Methamphetamines Scrn Negative, U Benzodiazepines Scrn Negative, Urine Cocaine Screen Negative, U Marijuana (THC) Screen Positive H Result diagrams: 12/30/17 12:20 12/30/17 12:20 Orders (Tests/Meds): ED MEDICATIONS Generic Name Dose Route Start Last Admin Trade Name Freq PRN Reason Stop Dose Admin Famotidine 20 mg 12/30/17 16:45 Pepcid 20mg/2ml Vial IV 01/29/18 16:44 DAILY NIKOLAI Potassium Chloride/Sodium Chloride 1,000 mls @ 100 mls/hr 12/30/17 14:45 12/30/17 15:11 Kcl 40 Meq-Ns 1,000ml Iv Soln IV 01/29/18 14:44 100 mls/hr .Q10H NIKOLAI Administration Magnesium Sulfate 2 gm/ 1,015 mls @ 333 mls/hr 12/30/17 16:30 Thiamine HCl 100 mg/ IV 12/30/17 19:32 Multivitamins 10 ml/ Lactated ONCE ONE Ringer's Lactated Ringer's 1,000 mls @ 125 mls/hr 12/30/17 16:30 Lactated Ringer's 1000 Ml Bag IV 01/29/18 16:29 .Q8H NIKOLAI Metoclopramide HCl 5 mg 12/30/17 17:00 Reglan 5mg Tablet PO 01/29/18 16:59 QID NIKOLAI Ondansetron HCl 8 mg 12/30/17 16:31 Zofran 4mg/2ml Vial IV 01/29/18 16:30 Q6HP PRN Nausea And Vomiting Oxycodone/Acetaminophen 1 each 12/30/17 16:36 Percocet 5/325mg Tablet PO 01/29/18 16:35 Q8HP PRN Moderate to Severe Pain Potassium Chloride 10 meq 12/30/17 21:00 Klor-Con 10meq Tablet PO 01/29/18 20:59 BID NIKOLAI Promethazine HCl 12.5 mg 12/30/17 16:31 Phenergan 25mg/Ml 1ml Vial IV 01/29/18 16:30 Q4HP PRN Nausea And Vomiting Sodium Chloride 8 ml 12/30/17 16:45 Saline Flush 10ml Syringe IV 01/29/18 16:44 DAILY NIKOLAI Discontinued Medications Raven
[2017-12-30 12:31] VITALS: BP 112/78; PULSE 80; RESP 20; O2SAT 100
[2017-12-30 12:33] LABS: Basophils % 0.1 % (0.1-2.0); Eosinophils # 0.1 K/mm3 (0.0-0.4); Eosinophils % 1.4 % (0.1-12.0); Hematocrit 33.9 % (37.0-47.0); Hemoglobin 10.9 g/dL (12.2-16.2); Lymphocytes # 1.6 K/mm3 (0.7-4.5); Lymphocytes % 15.3 K/mm3 (10-50); Mean Corpuscular HGB Conc 32.1 g/dL (31.8-35.4); Mean Corpuscular Hemoglobin 25.7 pg (27.0-31.2); Mean Platelet Volume 7.9 fl (7.4-10.4); Microscopic, Urine URINE MICROSCOPIC (MICROSCOPIC); Monocytes # 0.4 K/mm3 (0.1-1.0); Monocytes % 4.1 % (1.7-9.3); Neutrophils # 8.4 K/mm3 (1.8-7.8); Neutrophils % 79.3 % (37.0-80.0); Platelet Count 277 K/mm3 (142-424); Red Blood Count 4.23 M/mm3 (4.20-5.40); Red Cell Distribution Width 16.4 % (11.5-17.5); White Blood Count 10.6 K/mm3 (4.8-10.8)
[2017-12-30 12:36] LABS: Appearance,Urine CLOUDY (Clear); Bilirubin,Urine Negative (Negative); Blood, Urine Negative (Negative); Color,Urine YELLOW (Yellow); Glucose,Urine (UA) Negative (Negative); Ketones,Urine 2+ (Negative); Leukocyte Esterase,Urine 2+ (Negative); Nitrate,Urine Negative (Negative); PH,Urine 7.5 (5.0-8.5); Protein,Urine Negative (Negative); Specific Gravity, Urine 1.015 (1.005-1.030); Urobilinogen,Urine 0.2 EU/dl (0.2)
[2017-12-30 12:45] LABS: Alanine Aminotransferase 22 U/L (12-78); Albumin Level 3.2 gm/dL (3.4-5.0); Albumin/Globulin Ratio 0.8 (1.1-1.8); Alkaline Phosphatase 55 U/L (46-116); Aspartate Amino Transferase 17 U/L (15-37); Bilirubin,Total 0.3 mg/dL (0.2-1.0); Blood Urea Nitrogen 3 mg/dL (7-18); Calcium 8.5 mg/dL (8.5-10.1); Carbon Dioxide 25 mmol/L (21.0-32.0); Chloride 102 mmol/L (98-107); Creatinine Clearance Estimated 186 mL/min (0-300); Creatinine,Serum 0.44 mg/dL (0.55-1.02); Estimated Glomerular Filt Rate 169 ml/min (>60); GFR (African American) 205 ML/MIN (>60); Globulin 3.8 gm/dl (1.3-3.2); Glucose 103 mg/dL (74-106); Sodium 136 mmol/L (136-145)
[2017-12-30 12:58] LABS: Bacteria,Urine 2+ /lpf
--- NOTE | 2017-12-30 13:01 | PC.NURSE ---
heart rate 150
[2017-12-30 13:48] LABS: Lipase 57 u/L (73-393)
[2017-12-30 13:56] LABS: Amphetamine/Metha Screen,Urine Negative ng/mL (<1000); Barbiturates Screen,Urine Negative ng/mL (<200); Benzodiazepines Screen,Urine Negative ng/mL (200); Cannabinoid Screen,Urine Positive ng/mL (<50); Cocaine Screen,Urine Negative ng/g (<300); Methadone Screen,Urine Negative ng/mL (<300); Opiate Screen,Urine Negative ng/mL (<300); Phencyclidine Screen,Urine Negative ng/mL (<25)
--- NOTE | 2017-12-30 14:45 | PC.NURSE ---
Per ER MD, Dr. Murray stated to him he would place admission orders on pt.
--- NOTE | 2017-12-30 15:50 | PC.NURSE ---
contacting Dr. Murray's office to check on status of admission orders on pt.
--- NOTE | 2017-12-30 15:57 | PC.NURSE ---
NO answer at Dr. Murray's office, photocomposing machine operator paging him.
--- NOTE | 2017-12-30 15:59 | PC.NURSE ---
spoke with Dr. Murray at this time, stated he would contact OB staff and take care of admission orders. Spoke with LindyRN notifying her of this, stated she would contact us when they heard from her.
--- NOTE | 2017-12-30 16:12 | PC.NURSE ---
Report called to ELOY Israel on OB at this time.
[2017-12-30 16:25] VITALS: BP 141/85; PULSE 67; RESP 18; TEMP 36.8; O2SAT 99
[2017-12-30 17:24] VITALS: BP 127/72; PULSE 77; RESP 16; TEMP 36.9; O2SAT 100; BMI 50.6
--- NOTE | 2017-12-30 17:29 | PC.NURSE ---
FHT AUDIBLE AT 154.
--- NOTE | 2017-12-30 17:49 | P.HP_ITS ---
OB - H&P: HPI Antepartum - History of Present Illness Chief complaint: Hyperemesis - History of Present care: limited care Ultrasounds: normal 1st trimester US Obstetrical complications: hyperemesis Medical complications: none Planning to breastfeed?: No [facility] History I have reviewed the patient's past medical history: Yes Medical History: Denies:: Cancer, Diabetes Mellitus Type 1, Diabetes Mellitus Type 2, Internal Pacemaker, MRSA Other Surgeries: No: Pacemaker Amputation: No Fractures: No - *Social History Smoking Status: Current every day smoker Tobacco Type: cigarettes Alcohol Intake: never Substance Use Type: marijuana Occupational Status: previously employed Household Members: children - Psychiatric History Expresses thoughts of harming self/others: None Suicide Plan Description: No Plan *Family Hx:: No significant family history Para: 4 Review of Systems - Review of Systems Review of systems:: pertinent systems reviewed and negative unless documented below Meds Home Medications Medication Instructions Recorded Confirmed Type Pnv95/Iron Fum/Folic Acid 1 each PO DAILY 11/12/17 11/30/17 History [ Tablet] Promethazine HCl [Phenergan 12.5mg 12.5 mg RC Q4HP PRN 11/30/17 12/01/17 History Suppository] raNITIdine HCl [Ranitidine HCl] 150 mg PO BID 11/30/17 11/30/17 History Acetaminophen with Codeine 1 tab PO Q4HP PRN 12/01/17 12/01/17 History [Tylenol with Codeine #3 tablet] Allergies Allergy/AdvReac Type Severity Reaction Status Date / Time aspirin [ASPIRIN] Allergy Unknown CAUSES Verified 12/30/17 12:14 SEIZURES ketorolac [KETOROLAC] Allergy Unknown HEADACHES Verified 12/30/17 12:14 OB - H&P: Exam - Physical Exam Vital signs: Temp Pulse Resp BP Pulse Ox 98.4 F 77 16 127/72 100 12/30/17 17:24 12/30/17 17:24 12/30/17 17:24 12/30/17 17:24 12/30/17 17:24 - Constitutional no acute distress OB - A/P Antepartum (1) Dehydration Current visit: Yes Status: Acute (2) Hypokalemia Current visit: Yes Status: Acute (3) Vomiting affecting Current visit: Yes Status: Acute (4) Hyperemesis affecting , antepartum Current visit: No Status: Acute (5) Hypokalemia due to loss of potassium Current visit: No Status: Acute (6) Current visit: No Status: Acute - Additional Plan Plan: other (We will rehydrate her as well as start potassium. We will give her anti-emetics.)
[2017-12-31] VITALS (15 sets, daily range): BP systolic 107–161; BP diastolic 61–98; PULSE 55–84; RESP 18–29; TEMP 36.3–36.8; O2SAT 95–100
--- NOTE | 2017-12-31 07:47 | HMH.ACPN2 ---
Internal Medicine - PN: Subj *Date: 12/31/17 *Time: 07:47 Interval history: She seems to be little better this morning. She is eating full fluids and has had no further episodes of vomiting. She still continues to have some right upper quadrant pain possibly consistent with her gallbladder. We will have her seen by our general surgeon. Exam Vital signs and Labs for Last 24 Hours: Temp Pulse Resp BP Pulse Ox 98.4 F 77 16 127/72 100 12/30/17 17:24 12/30/17 17:24 12/30/17 17:24 12/30/17 17:24 12/30/17 17:24 I & O for Last 24 hours: Intake & Output 12/28/17 12/29/17 12/30/17 12/31/17 11:59 11:59 11:59 11:59 Intake Total 1000 / 1000 Balance 1000 / 1000 Weight 146 lb 2 oz - Constitutional no acute distress Assessment and Plan (1) Dehydration Current visit: Yes Status: Acute Category: Medical Code(s): E86.0 - Dehydration (2) Hypokalemia Current visit: Yes Status: Acute Category: Medical Code(s): E87.6 - Hypokalemia (3) Vomiting affecting Current visit: Yes Status: Acute Category: Medical Code(s): O21.9 - Vomiting of , unspecified (4) Hyperemesis affecting , antepartum Current visit: No Status: Acute Category: Medical Code(s): O21.0 - Mild hyperemesis gravidarum (5) Hypokalemia due to loss of potassium Current visit: No Status: Acute Category: Medical Code(s): E87.6 - Hypokalemia (6) Current visit: No Status: Acute Qualifiers: Weeks of gestation: 14 weeks Qualified Code(s): Z3A.14 - 14 weeks gestation of Category: Medical Code(s): Z34.90 - Encounter for supervision of normal , unspecified, unspecified trimester (7) Right upper quadrant pain Current visit: Yes Status: Acute Category: Medical Code(s): R10.11 - Right upper quadrant pain - Assessment and plan all Dx Assessment and Plan for all problems:: With respect to her nausea and vomiting she is doing a little better. She has not had no further episodes of vomiting. She does have some constipation so we will start a stool softener. We will consult our general surgeon to see if they can do a laparoscopic removal of her gallbladder.
--- NOTE | 2017-12-31 09:35 | US_ITS ---
US gallbladder HISTORY: ITS.REASON: RUQ pain, 17 weeks ORDERING PHYSICIAN: Edgardo Murray MD PATIENT AGE: 27 years COMPARISON: 10/21/2017 FINDINGS: PANCREAS: Unremarkable. No obvious mass or abnormal fluid collection. No ductal dilatation LIVER: No focal liver lesions demonstrated. Homogeneous echogenicity. No intrahepatic biliary ductal dilatation evident RIGHT KIDNEY: There is ectasia of the right renal collecting system may be related to patient's gravid state GALLBLADDER: No shadowing gallstones are evident. There are at least 3 gallbladder polyps the largest in the upper aspect of the gallbladder at 5 mm. Sludge is present. No gallbladder wall thickening or pericholecystic fluid. IMPRESSION: Gallbladder polyps with sludge. No stones apparent Mild ectasia of the right renal collecting system
--- NOTE | 2017-12-31 12:40 | HMH.GSCON ---
*Admission Date: 12/30/17 *Chief complaint: Right upper quadrant pain, epigastric pain, nausea/vomiting *History of present illness: This is a 27-year-old female who is 17+ weeks being seen in consultation from Dr. Murray for evaluation regarding possible gallbladder disease. The past few years she has noted intermittent pain in the epigastric region and right upper quadrant. She states that her pain is often associated with nausea and intermittent emesis. No fevers. No jaundice. Occasional association of symptoms with food intake. Prior ultrasounds have revealed some gallbladder sludge and possible polyps. No definitive severe abnormalities were noted. Over the past few days she has noticed increasing nausea and vomiting and states that she just cannot keep anything down . Her pain remains mostly in the epigastric region and right upper quadrant. Some radiation to the back. Review of Systems - Constitutional Reports anorexia, Denies night sweats - Eyes Denies change in vision - ENT Denies change in voice - *Cardiovascular Denies chest pain - *Respiratory Denies cough - *Gastrointestinal Reports abdominal pain - *Musculoskeletal Denies abnormal walking - Integumentary/Breasts Denies hair loss - *Neurologic Denies sensory deficit - Psychiatric Denies anxiety - Hematologic/Lymphatic Denies easy bleeding - Allergic/Immunologic Reports GI upset with certain foods [facility] History Medical History: Denies:: Cancer, Diabetes Mellitus Type 1, Diabetes Mellitus Type 2, Internal Pacemaker, MRSA Other Surgeries: No: Pacemaker Amputation: No Fractures: No - *Social History Smoking Status: Current every day smoker Tobacco Type: cigarettes Alcohol Intake: never Substance Use Type: marijuana Occupational Status: previously employed Household Members: children - Psychiatric History Expresses thoughts of harming self/others: None Suicide Plan Description: No Plan *Family Hx:: No significant family history Para: 4 Meds Home Medications Medication Instructions Recorded Confirmed Type Pnv95/Iron Fum/Folic Acid 1 each PO DAILY 11/12/17 11/30/17 History [ Tablet] Promethazine HCl [Phenergan 12.5mg 12.5 mg RC Q4HP PRN 11/30/17 12/01/17 History Suppository] raNITIdine HCl [Ranitidine HCl] 150 mg PO BID 11/30/17 11/30/17 History Acetaminophen with Codeine 1 tab PO Q4HP PRN 12/01/17 12/01/17 History [Tylenol with Codeine #3 tablet] Allergies Allergy/AdvReac Type Severity Reaction Status Date / Time aspirin [ASPIRIN] Allergy Unknown CAUSES Verified 12/30/17 12:14 SEIZURES ketorolac [KETOROLAC] Allergy Unknown HEADACHES Verified 12/30/17 12:14 Exam Vital signs and Labs for Last 24 Hours: Temp Pulse Resp BP Pulse Ox 98.4 F 77 18 127/72 100 12/30/17 17:24 12/30/17 17:24 12/31/17 09:33 12/30/17 17:24 12/30/17 17:24 I & O for Last 24 hours: Intake & Output 12/29/17 12/30/17 12/31/17 01/01/18 11:59 11:59 11:59 11:59 Intake Total 1000 / 1000 Balance 1000 / 1000 Weight 143 lb 4 oz - Constitutional no acute distress - *Routine Respiratory Exam Absent: respiratory distress - *Routine Cardiovascular Exam Present: RRR - *Routine Abdominal Exam Present: soft Comments: some TTP (RUQ and epigastrum) Results - Labs 12/30/17 12:20 12/30/17 12:20 Assessment and Plan (1) Dehydration Current visit: Yes Status: Acute Category: Medical Code(s): E86.0 - Dehydration (2) Hypokalemia Current visit: Yes Status: Acute Category: Medical Code(s): E87.6 - Hypokalemia (3) Vomiting affecting Current visit: Yes Status: Acute Category: Medical Code(s): O21.9 - Vomiting of , unspecified (4) Hyperemesis affecting , antepartum Current visit: No Status: Acute Category: Medical Code(s): O21.0 - Mild hyperemesis gravidarum (5) Hypokalemia due
--- NOTE | 2017-12-31 12:44 | P.CONS_ITS ---
*Admission Date: 12/30/17 *Chief complaint: Right upper quadrant pain, epigastric pain, nausea/vomiting *History of present illness: This is a 27-year-old female who is 17+ weeks being seen in consultation from Dr. Murray for evaluation regarding possible gallbladder disease. The past few years she has noted intermittent pain in the epigastric region and right upper quadrant. She states that her pain is often associated with nausea and intermittent emesis. No fevers. No jaundice. Occasional association of symptoms with food intake. Prior ultrasounds have revealed some gallbladder sludge and possible polyps. No definitive severe abnormalities were noted. Over the past few days she has noticed increasing nausea and vomiting and states that she just cannot keep anything down . Her pain remains mostly in the epigastric region and right upper quadrant. Some radiation to the back. Review of Systems - Constitutional Reports anorexia, Denies night sweats - Eyes Denies change in vision - ENT Denies change in voice - *Cardiovascular Denies chest pain - *Respiratory Denies cough - *Gastrointestinal Reports abdominal pain - *Musculoskeletal Denies abnormal walking - Integumentary/Breasts Denies hair loss - *Neurologic Denies sensory deficit - Psychiatric Denies anxiety - Hematologic/Lymphatic Denies easy bleeding - Allergic/Immunologic Reports GI upset with certain foods [facility] History Medical History: Denies:: Cancer, Diabetes Mellitus Type 1, Diabetes Mellitus Type 2, Internal Pacemaker, MRSA Other Surgeries: No: Pacemaker Amputation: No Fractures: No - *Social History Smoking Status: Current every day smoker Tobacco Type: cigarettes Alcohol Intake: never Substance Use Type: marijuana Occupational Status: previously employed Household Members: children - Psychiatric History Expresses thoughts of harming self/others: None Suicide Plan Description: No Plan *Family Hx:: No significant family history Para: 4 Meds Home Medications Medication Instructions Recorded Confirmed Type Pnv95/Iron Fum/Folic Acid 1 each PO DAILY 11/12/17 11/30/17 History [ Tablet] Promethazine HCl [Phenergan 12.5mg 12.5 mg RC Q4HP PRN 11/30/17 12/01/17 History Suppository] raNITIdine HCl [Ranitidine HCl] 150 mg PO BID 11/30/17 11/30/17 History Acetaminophen with Codeine 1 tab PO Q4HP PRN 12/01/17 12/01/17 History [Tylenol with Codeine #3 tablet] Allergies Allergy/AdvReac Type Severity Reaction Status Date / Time aspirin [ASPIRIN] Allergy Unknown CAUSES Verified 12/30/17 12:14 SEIZURES ketorolac [KETOROLAC] Allergy Unknown HEADACHES Verified 12/30/17 12:14 Exam Vital signs and Labs for Last 24 Hours: Temp Pulse Resp BP Pulse Ox 98.4 F 77 18 127/72 100 12/30/17 17:24 12/30/17 17:24 12/31/17 09:33 12/30/17 17:24 12/30/17 17:24 I & O for Last 24 hours: Intake & Output 12/29/17 12/30/17 12/31/17 01/01/18 11:59 11:59 11:59 11:59 Intake Total 1000 / 1000 Balance 1000 / 1000 Weight 143 lb 4 oz - Constitutional no acute distress - *Routine Respiratory Exam Absent: respiratory distress - *Routine Cardiovascular Exam Present: RRR - *Routine Abdo
--- NOTE | 2017-12-31 16:55 | HMH.OPNOTE ---
Date of procedure: 12/31/17 Pre-op Diagnosis:: Right upper quadrant pain Epigastric pain Nausea with vomiting Biliary sludge Gallbladder polyp Second trimester intrauterine Post-op Diagnosis:: Same as preoperative diagnoses, with the addition of the following: Chronic cholecystitis Procedure performed:: Laparoscopic cholecystectomy Surgeon:: Todd Cabrera MD STOCK SHEETS CLEANER INSPECTOR:: Gonzalo Yost Anesthesia: GETA Estimated blood loss (mL): 25 Clinical Note:: This is a 27-year-old female in her second trimester who presents with increasing right upper quadrant and epigastric pain with nausea/running. She has a known history of biliary sludge and gallbladder polyp. Repeat ultrasound confirmed to the above-stated findings. After a long discussion with the patient concerning the risks and benefits of operative and nonoperative management, the decision was made to proceed with cholecystectomy. Operative findings:: Fairly significant thickening of pericholecystic tissue/gallbladder serosa in and around the infundibulum Operative note:: After informed consent was obtained, the patient was taken to the operating room and placed in the supine position. General anesthesia was induced and her abdomen was prepped and draped in a sterile fashion. After infiltration with local anesthetic a small stab incision was made in the left upper quadrant and a Veress needle was placed in position. A 5 mm trocar was placed in the right upper quadrant and careful evaluation confirmed her uterus to be in appropriate position and stage for her known diagnosis of second semester intrauterine . No obvious sign of injury to the uterus or surrounding tissue is noted. Under direct visualization, a 5 mm trocar was placed at the umbilicus. An additional 5 mm trocar was placed in the right upper flank and a final 2 mm trochars placed in the subxiphoid position. The gallbladder was elevated up and over the liver margin. Thickening of the serosa and surrounding tissue was noted. Careful dissection was utilized to free the tissue around the cystic duct. This area was very thickened and the decision was made to transect at the infundibulum. The cystic artery was controlled with a combination of clips and harmonic kenrick. The infundibulum was transected with harmonic kenrick and Endoloops (?2) were utilized to control the stump. Harmonic kenrick were then used to remove the gallbladder from the liver margin. The gallbladder was placed in a retrieval bag and removed through the subxiphoid trocar site. A small amount of sanguinous ooze from the liver margin was controlled with harmonic kenrick and Surgicel. No active bleeding or bile leak was noted. Pneumoperitoneum was released as the trocars were removed. Fascia at the subxiphoid trocar site was reapproximated utilizing 0 Ethibond. All wounds were irrigated and skin was closed with 4-0 Monocryl in a subcuticular fashion. Steri-Strips were applied. The patient's anesthetic agents were reversed and she was extubated prior to transfer to recovery. Condition: stable Disposition: PACU Specimens:: Gallbladder and contents Complications:: No immediate
--- NOTE | 2017-12-31 17:13 | P.PN_ITS ---
[facility] Anesthesia Checklist - Patient Identification Patient Identification: Arm Band, Verbal (Name & ) - Structural Data Admitted From: Inpatient Planned Operative Procedure/s: lap choly Consent for Planned Operative Procedure(s) Verified: Yes Verified Documents: Surgical Consent - NPO Status Verified Time NPO: 07:00 - Chart Verification Results Verified: CBC, BMP - Additional verifications Patient : Yes Anesthesia Reactions: No Hx Blood Transfusions: No Blood Transfusion Reaction: No Cephalosporin Allergy: No Previous Colonoscopy: No - Cardiovascular Assessment Heart Sounds: S1 & S2 Pulse Strength: Baseline Pulse Rhythm: Regular Peripheral Edema: No - Airway Assessment C-Spine Mobility Assessed: Yes TMJ Mobility Assessed: Yes Dentition: Good Dentition - Neurological Assessment Level of Consciousness: Awake, Alert, Appropriate Hx Seizures: No Numbness or tingling in extremities: No - Anesthesia Plan Anesthesia Risk discussed: Yes Anesthesia Plan: Verified ASA Class: II Anesthesia Type: General [facility] Anesthesia HX Medical History: Denies:: Cancer, Diabetes Mellitus Type 1, Diabetes Mellitus Type 2, Internal Pacemaker, MRSA Other Surgeries: No: Pacemaker Amputation: No Fractures: No *Family Hx:: No significant family history
--- NOTE | 2017-12-31 17:13 | HMH.ANESI ---
[facility] Anesthesia Record Part I Intake, IV Amount: 1,000 Estimated blood loss (mL): 10 Urine output (mL): 10 Blood Products used (#): none Blood Pressure: 161/88 SaO2: 100 Pulse Rate: 58 Respiratory Rate: 18 Temperature: 97.4 F Patient is:: Drowsy, Stable Stable to PACU at:: 17:10
--- NOTE | 2017-12-31 17:15 | P.PN_ITS ---
[facility] Anesthesia Record Part II Discharge Time: 17:40 Destination: Obstetric PACU nurse assessment reviewed?: Yes Patient Condition:: Good Anesthesia Complications:: None
[2018-01-01] VITALS: BP 139/82; PULSE 66; RESP 18; TEMP 36.6; O2SAT 99
[2018-01-01 01:00] VITALS: BP 124/64; PULSE 82; RESP 18; TEMP 36.8; O2SAT 98
[2018-01-01 07:11] LABS: Alanine Aminotransferase 25 U/L (12-78); Albumin Level 2.7 gm/dL (3.4-5.0); Albumin/Globulin Ratio 0.8 (1.1-1.8); Alkaline Phosphatase 48 U/L (46-116); Anion Gap 10.6 mEq/L (5-15); Aspartate Amino Transferase 26 U/L (15-37); Bilirubin,Total 0.3 mg/dL (0.2-1.0); Calcium 8.1 mg/dL (8.5-10.1); Carbon Dioxide 25 mmol/L (21.0-32.0); Chloride 102 mmol/L (98-107); Creatinine Clearance Estimated 173 mL/min (0-300); Estimated Glomerular Filt Rate 143 ml/min (>60); GFR (African American) 173 ML/MIN (>60); Globulin 3.2 gm/dl (1.3-3.2); Glucose 99 mg/dL (74-106); Sodium 135 mmol/L (136-145); Total Protein,Serum 5.9 gm/dL (6.4-8.2)
[2018-01-01 07:14] LABS: Potassium 2.6 mmoL/L (3.5-5.1)
[2018-01-01 07:20] LABS: Blood Urea Nitrogen 2 mg/dL (7-18); Creatinine,Serum 0.51 mg/dL (0.55-1.02)
[2018-01-01 07:25] LABS: Basophils % 0.2 % (0.1-2.0); Eosinophils # 0.1 K/mm3 (0.0-0.4); Eosinophils % 0.7 % (0.1-12.0); Hematocrit 29.1 % (37.0-47.0); Hemoglobin 9.2 g/dL (12.2-16.2); Lymphocytes # 2.5 K/mm3 (0.7-4.5); Lymphocytes % 23.8 K/mm3 (10-50); Mean Corpuscular HGB Conc 31.6 g/dL (31.8-35.4); Mean Corpuscular Hemoglobin 25.5 pg (27.0-31.2); Mean Corpuscular Volume 80.7 fl (81-99); Mean Platelet Volume 8.2 fl (7.4-10.4); Monocytes # 0.5 K/mm3 (0.1-1.0); Monocytes % 4.6 % (1.7-9.3); Neutrophils # 7.5 K/mm3 (1.8-7.8); Neutrophils % 70.6 % (37.0-80.0); Platelet Count 232 K/mm3 (142-424); Red Cell Distribution Width 16.5 % (11.5-17.5); White Blood Count 10.7 K/mm3 (4.8-10.8)
--- NOTE | 2018-01-01 07:26 | PC.NURSE ---
Attempted to notify Dr. Murray of critical potassium value at this time on pt, no answer. Will attempt to call MD again. MD to make rounds this morning.
--- NOTE | 2018-01-01 07:34 | PC.NURSE ---
Dr. Murray in surgery at this time, spoke with Mayi Pitts RN. RN notified Dr. Murray of critical potassium. New order from MD at this time for pt to receive 20 meq PO potassium BID. Phone order repeated and verified.
--- NOTE | 2018-01-01 08:14 | HMH.GSPN ---
Subjective Patient reports: feels better Exam Vital signs and Labs for Last 24 Hours: Temp Pulse Resp BP Pulse Ox 98.2 F 82 18 124/64 98 01/01/18 01:00 01/01/18 01:00 01/01/18 01:00 01/01/18 01:00 01/01/18 01:00 Laboratory Results - last 24 hr 01/01/18 06:30: WBC 10.7, RBC 3.60 L, Hgb 9.2 L, Hct 29.1 L, MCV 80.7 L, MCH 25.5 L, MCHC 31.6 L, RDW 16.5, Plt Count 232, MPV 8.2, Neut % (Auto) 70.6, Lymph % (Auto) 23.8, [place] % (Auto) 4.6, Eos % (Auto) 0.7, Baso % (Auto) 0.2, Neut # (Auto) 7.5, Lymph # (Auto) 2.5, [place] # (Auto) 0.5, Eos # (Auto) 0.1, Baso # (Auto) 0.0 01/01/18 06:30: Sodium 135 L, Potassium 2.6 L*, Chloride 102, Carbon Dioxide 25, Anion Gap 10.6, BUN 2 L D, Creatinine 0.51 L, Estimated Creat Clear 173, Estimated GFR 143, Est GFR ( Amer) 173, Glucose 99, Calcium 8.1 L, Total Bilirubin 0.3, AST 26 D, ALT 25, Alkaline Phosphatase 48, Total Protein 5.9 L, Albumin 2.7 L, Globulin 3.2, Albumin/Globulin Ratio 0.8 L I & O for Last 24 hours: Intake & Output 12/29/17 12/30/17 12/31/17 01/01/18 11:59 11:59 11:59 11:59 Intake Total 1000 / 1000 1000 / 1000 Balance 1000 / 1000 1000 / 1000 Weight 143 lb 4 oz 148 lb 2 oz - Constitutional no acute distress - *Routine Respiratory Exam Absent: respiratory distress - *Routine Cardiovascular Exam Present: RRR - *Routine Abdominal Exam Present: soft Comments: dressing intact. no erythema. Progress Note: A&P (1) Dehydration Status: Acute Current Visit: Yes (2) Hypokalemia Status: Acute Current Visit: Yes (3) Vomiting affecting Status: Acute Current Visit: Yes (4) Hyperemesis affecting , antepartum Status: Acute Current Visit: No (5) Hypokalemia due to loss of potassium Status: Acute Assessment and plan: Currently being replaced as per primary service Current Visit: No (6) Status: Acute Current Visit: No (7) Right upper quadrant pain Status: Acute Current Visit: Yes (8) Chronic cholecystitis Status: Chronic Assessment and plan: Overall, doing well s/p laparoscopic cholecystectomy: Continue care as per primary service No heavy lifting for 4 weeks Current Visit: Yes
[2018-01-01 08:15] VITALS: BP 136/85; PULSE 81; RESP 18; TEMP 36.7; O2SAT 100
--- NOTE | 2018-01-01 08:17 | P.PN_ITS ---
Subjective Patient reports: feels better Exam Vital signs and Labs for Last 24 Hours: Temp Pulse Resp BP Pulse Ox 98.2 F 82 18 124/64 98 01/01/18 01:00 01/01/18 01:00 01/01/18 01:00 01/01/18 01:00 01/01/18 01:00 Laboratory Results - last 24 hr 01/01/18 06:30: WBC 10.7, RBC 3.60 L, Hgb 9.2 L, Hct 29.1 L, MCV 80.7 L, MCH 25.5 L, MCHC 31.6 L, RDW 16.5, Plt Count 232, MPV 8.2, Neut % (Auto) 70.6, Lymph % (Auto) 23.8, [place] % (Auto) 4.6, Eos % (Auto) 0.7, Baso % (Auto) 0.2, Neut # (Auto) 7.5, Lymph # (Auto) 2.5, [place] # (Auto) 0.5, Eos # (Auto) 0.1, Baso # (Auto) 0.0 01/01/18 06:30: Sodium 135 L, Potassium 2.6 L*, Chloride 102, Carbon Dioxide 25 , Anion Gap 10.6, BUN 2 L D, Creatinine 0.51 L, Estimated Creat Clear 173, Estimated GFR 143, Est GFR ( Amer) 173, Glucose 99, Calcium 8.1 L, Total Bilirubin 0.3, AST 26 D, ALT 25, Alkaline Phosphatase 48, Total Protein 5.9 L, Albumin 2.7 L, Globulin 3.2, Albumin/Globulin Ratio 0.8 L I & O for Last 24 hours: Intake & Output 12/29/17 12/30/17 12/31/17 01/01/18 11:59 11:59 11:59 11:59 Intake Total 1000 / 1000 1000 / 1000 Balance 1000 / 1000 1000 / 1000 Weight 143 lb 4 oz 148 lb 2 oz - Constitutional no acute distress - *Routine Respiratory Exam Absent: respiratory distress - *Routine Cardiovascular Exam Present: RRR - *Routine Abdominal Exam Present: soft Comments: dressing intact. no erythema. Progress Note: A&P (1) Dehydration Status: Acute Current Visit: Yes (2) Hypokalemia Status: Acute Current Visit: Yes (3) Vomiting affecting Status: Acute Current Visit: Yes (4) Hyperemesis affecting , antepartum Status: Acute Current Visit: No (5) Hypokalemia due to loss of potassium Status: Acute Assessment and plan: Currently being replaced as per primary service Current Visit: No (6) Status: Acute Current Visit: No (7) Right upper quadrant pain Status: Acute Current Visit: Yes (8) Chronic cholecystitis Status: Chronic Assessment and plan: Overall, doing well s/p laparoscopic cholecystectomy: Continue care as per primary service No heavy lifting for 4 weeks Current Visit: Yes
--- NOTE | 2018-01-01 08:47 | PC.NURSE ---
Dr. Murray at pts bedside at this time, report given.
--- NOTE | 2018-01-01 09:38 | HMH.DCSUM ---
General - General Admission date: 12/30/17 Discharge date: 01/01/18 HPI HPI: She is a 27-year-old 6 para 4 who was 17 weeks gestational age. She came in with nausea and vomiting as well as right upper quadrant pain. She is admitted through the ER. Hospital Course Hospital Course: She was started on IV fluids and antiemetics. She was seen by Dr. Medina who agreed that she probably had cholecystitis and he elected to perform a laparoscopic cholecystectomy. She underwent this on December 31, 2017. She has done well postoperatively and has remained afebrile throughout her hospitalization. She says that she is feeling much better. As result of that we are going to discharge her home today. Objective Vital signs: Temp Pulse Resp BP Pulse Ox 98.1 F 81 18 136/85 100 01/01/18 08:15 01/01/18 08:15 01/01/18 08:15 01/01/18 08:15 01/01/18 08:15 no acute distress Results Labs on day of discharge: Labs from last 24 hours 01/01/18 01/01/18 06:30 06:30 WBC 10.7 RBC 3.60 L Hgb 9.2 L Hct 29.1 L MCV 80.7 L MCH 25.5 L MCHC 31.6 L RDW 16.5 Plt Count 232 MPV 8.2 Neut % (Auto) 70.6 Lymph % (Auto) 23.8 [place] % (Auto) 4.6 Eos % (Auto) 0.7 Baso % (Auto) 0.2 Neut # (Auto) 7.5 Lymph # (Auto) 2.5 [place] # (Auto) 0.5 Eos # (Auto) 0.1 Baso # (Auto) 0.0 Sodium 135 L Potassium 2.6 L* Chloride 102 Carbon Dioxide 25 Anion Gap 10.6 BUN 2 L D Creatinine 0.51 L Estimated Creat Clear 173 Estimated GFR 143 Est GFR ( Amer) 173 Glucose 99 Calcium 8.1 L Total Bilirubin 0.3 AST 26 D ALT 25 Alkaline Phosphatase 48 Total Protein 5.9 L Albumin 2.7 L Globulin 3.2 Albumin/Globulin Ratio 0.8 L DS: Diagnosis - Discharge Diagnosis (1) Dehydration Status: Acute (2) Hypokalemia Status: Acute (3) Vomiting affecting Status: Acute (4) Hyperemesis affecting , antepartum Status: Acute (5) Hypokalemia due to loss of potassium Status: Acute (6) Status: Acute (7) Right upper quadrant pain Status: Acute Discharge Plan - Patient Discharge Instructions ACTIVITY: No heavy lifting DIET: low fat, low cholesterol - Follow up Plan Follow up with: Todd Cabrera MD [Staff Physician] - 01/12/18 Disposition: Home, Self-Prison Medications: Home Medications Medication Instructions Recorded Confirmed Type RX: Pnv95/Iron Fum/Folic Acid 1 each PO DAILY 11/12/17 11/30/17 History [ Tablet] Promethazine HCl [Phenergan 12.5mg 12.5 mg RC Q4HP PRN 11/30/17 12/01/17 History Suppository] RX: raNITIdine HCl [Ranitidine HCl] 150 mg PO BID 11/30/17 11/30/17 History Acetaminophen with Codeine 1 tab PO Q4HP PRN 12/01/17 12/01/17 History [Tylenol with Codeine #3 tablet] Prescriptions/Medication Reconciliation: Continue Promethazine HCl [Phenergan 12.5mg tablet] 12.5 mg PO Q4-6H PRN #20 tab PRN Reason: Nausea RX: raNITIdine HCl [Ranitidine HCl] 150 mg PO BID Promethazine HCl [Phenergan 12.5mg Suppository] 12.5 mg RC Q4HP PRN PRN Reason: nausea/vomiting RX: Pnv95/Iron Fum/Folic Acid [ Tablet] 1 each PO DAILY Discontinued Acetaminophen with Codeine [Tylenol with Codeine #3 tablet] 1 tab PO Q4HP PRN PRN Reason: Mild To Moderate Pain
--- NOTE | 2018-01-01 09:41 | P.DS_ITS ---
General - General Admission date: 12/30/17 Discharge date: 01/01/18 HPI HPI: She is a 27-year-old 6 para 4 who was 17 weeks gestational age. She came in with nausea and vomiting as well as right upper quadrant pain. She is admitted through the ER. Hospital Course Hospital Course: She was started on IV fluids and antiemetics. She was seen by Dr. Medina who agreed that she probably had cholecystitis and he elected to perform a laparoscopic cholecystectomy. She underwent this on December 31, 2017. She has done well postoperatively and has remained afebrile throughout her hospitalization. She says that she is feeling much better. As result of that we are going to discharge her home today. Objective Vital signs: Temp Pulse Resp BP Pulse Ox 98.1 F 81 18 136/85 100 01/01/18 08:15 01/01/18 08:15 01/01/18 08:15 01/01/18 08:15 01/01/18 08:15 no acute distress Results Labs on day of discharge: Labs from last 24 hours 01/01/18 01/01/18 06:30 06:30 WBC 10.7 RBC 3.60 L Hgb 9.2 L Hct 29.1 L MCV 80.7 L MCH 25.5 L MCHC 31.6 L RDW 16.5 Plt Count 232 MPV 8.2 Neut % (Auto) 70.6 Lymph % (Auto) 23.8 [place] % (Auto) 4.6 Eos % (Auto) 0.7 Baso % (Auto) 0.2 Neut # (Auto) 7.5 Lymph # (Auto) 2.5 [place] # (Auto) 0.5 Eos # (Auto) 0.1 Baso # (Auto) 0.0 Sodium 135 L Potassium 2.6 L* Chloride 102 Carbon Dioxide 25 Anion Gap 10.6 BUN 2 L D Creatinine 0.51 L Estimated Creat Clear 173 Estimated GFR 143 Est GFR ( Amer) 173 Glucose 99 Calcium 8.1 L Total Bilirubin 0.3 AST 26 D ALT 25 Alkaline Phosphatase 48 Total Protein 5.9 L Albumin 2.7 L Globulin 3.2 Albumin/Globulin Ratio 0.8 L DS: Diagnosis - Discharge Diagnosis (1) Dehydration Status: Acute (2) Hypokalemia Status: Acute (3) Vomiting affecting Status: Acute (4) Hyperemesis affecting , antepartum Status: Acute (5) Hypokalemia due to loss of potassium Status: Acute (6) Status: Acute (7) Right upper quadrant pain Status: Acute Discharge Plan - Patient Discharge Instructions ACTIVITY: No heavy lifting DIET: low fat, low cholesterol - Follow up Plan Follow up with: Todd Cabrera MD [Staff Physician] - 01/12/18 Disposition: Home, Self-Shelter Medications: Home Medications Medication Instructions Recorded Confirmed Type RX: Pnv95/Iron Fum/Folic Acid 1 each PO DAILY 11/12/17 11/30/17 History [ Tablet] Promethazine HCl [Phenergan 12.5mg 12.5 mg RC Q4HP PRN 11/30/17 12/01/17 History Suppository] RX: raNITIdine HCl [Ranitidine HCl] 150 mg PO BID 11/30/17 11/30/17 History Acetaminophen with Codeine 1 tab PO Q4HP PRN 12/01/17 12/01/17 History [Tylenol with Codeine #3 tablet] Prescriptions/Medication Reconciliation: Continue Promethazine HCl [Phenergan 12.5mg tablet] 12.5 mg PO Q4-6H PRN #20 tab
== END 2018-01-01 10:15 | disposition home or self-care (01) ==
LOC: ER 14:51 → OB 14:58
PROVIDERS: Surgery; Admitting Provider Nurse Practitioner Obstetrics & Gynecology; Emergency Provider Emergency Medicine; Family Provider Nurse Practitioner Family; PCP Nurse Anesthetist, Certified Registered; Visit Provider Nurse Practitioner Obstetrics & Gynecology
PROC: 0FT44ZZ Resection of Gallbladder, Percutaneous Endoscopic Approach (ICD-10-PCS; CPT 47562; principal; 2017-12-31 15:00)
DX: O99.612 Diseases of the digestive system complicating pregnancy, second trimester (principal); K81.1 Chronic cholecystitis; Z3A.17 17 weeks gestation of pregnancy
CPT/HCPCS: 47562; 36415; 76705; 80053; 80305; 81001; 83690; 85025; 87086; 88304; 96360; 96361; 96365; 96367; 96374; 96375; 99284; G0378; J0131; J2405; J2710

== ENCOUNTER → 2018-02-03 13:39 | Outpatient (CLI) | payer MEDICAID, SELFPAY ==
--- NOTE | 2018-02-03 13:44 | US_ITS ---
US OB /maternal detail: INDICATION: ITS.REASON: 20 wk + OB Complete ORDERING PHYSICIAN: Edgardo Murray MD PATIENT AGE: 27 years TECHNIQUE: ultrasound transabdominal scanning. COMPARISON: No previous relevant studies. FINDINGS: Single viable intrauterine gestation. breech position. Placenta: anterior placenta grade 1. There is average amount fluid. The cervix appears satisfactory. Closed and measuring 3 cm in length. Complete survey performed and was unremarkable on the submitted images as in PACS. No discrete anomalies identified on survey imaging by technologist. Active fetus. Three-vessel cord with satisfactory umbilical cord insertion. 4- chamber heart noted. Survey of brain & ventricles. Face and neck survey unremarkable. Diaphragm and chest views unremarkable. Abdomen: Both kidneys noted and unremarkable. Stomach noted and satisfactory. Spine: Survey of the spine satisfactory with no anomalies identified nor imaged. Both arms and legs noted. Amniotic Fluid: Adequate. Maternal adnexa: No significant findings. Measurements: Average ultrasound age 23w2d. Gestational Age 24w2d. Estimated due date by ultrasound age 0805/31/2018. Estimated weight 582 grams.. This is 9 percentile BPD = 23w0d OFD = 24w1d HC = 23w1d AC = 23w3d FL = 23w3d Heart Rate = 136 Cerebellum = 23w2d Humerus = 24w2d HC/AC is 1.13 (1.05-1.21). CI is 73% (70-86%). FL/BPD is 74% (70-86%). FL/AC is 22% (20-24%). IMPRESSION: There is a live intrauterine gestation which is in breech presentation with average ultrasound age of 23 weeks 2 days. No obvious anomalies. Please see above for detail
== END ==
PROVIDERS: Family Provider Nurse Practitioner Family; Visit Provider Nurse Practitioner Obstetrics & Gynecology
DX: Z36.0 Encounter for antenatal screening for chromosomal anomalies (principal)
CPT/HCPCS: 76811

== ENCOUNTER 2018-04-26 18:42 | Inpatient (IN) ==
[2018-04-26 19:02] LABS: Microscopic, Urine URINE MICROSCOPIC (MICROSCOPIC)
[2018-04-26 19:05] LABS: Appearance,Urine CLEAR (Clear); Blood, Urine Negative (Negative); Color,Urine YELLOW (Yellow); Glucose,Urine (UA) Negative (Negative); Ketones,Urine 3+ (Negative); Leukocyte Esterase,Urine TRACE (Negative); Protein,Urine TRACE (Negative); Specific Gravity, Urine 1.015 (1.005-1.030)
[2018-04-26 19:11] LABS: Bilirubin,Urine Negative (Negative)
[2018-04-26 19:22] LABS: Amphetamine/Metha Screen,Urine Positive ng/mL (<1000); Barbiturates Screen,Urine Negative ng/mL (<200); Benzodiazepines Screen,Urine Positive ng/mL (<200); Cannabinoid Screen,Urine Positive ng/mL (<50); Cocaine Screen,Urine Negative ng/mL (<300); Methadone Screen,Urine Negative ng/mL (<300); Opiate Screen,Urine Negative ng/mL (<300); Phencyclidine Screen,Urine Negative ng/mL (<25)
[2018-04-26 19:35] LABS: Basophils % 0.3 % (0.1-2.0); Eosinophils # 0.2 K/mm3 (0.0-0.4); Eosinophils % 1.9 % (0.1-12.0); Hematocrit 31.1 % (37.0-47.0); Hemoglobin 10.1 g/dL (12.2-16.2); Lymphocytes % 17.4 K/mm3 (10-50); Mean Corpuscular HGB Conc 32.6 g/dL (31.8-35.4); Mean Corpuscular Hemoglobin 25.9 pg (27.0-31.2); Mean Corpuscular Volume 79.4 fl (81-99); Monocytes # 0.5 K/mm3 (0.1-1.0); Monocytes % 4.2 % (1.7-9.3); Neutrophils # 8.7 K/mm3 (1.8-7.8); Neutrophils % 76.2 % (37.0-80.0); Platelet Count 231 K/mm3 (142-424); Red Blood Count 3.92 M/mm3 (4.20-5.40); Red Cell Distribution Width 16.2 % (11.5-17.5); White Blood Count 11.4 K/mm3 (4.8-10.8)
[2018-04-26 19:50] LABS: Bacteria,Urine Trace /lpf
--- NOTE | 2018-04-26 21:08 | Progress Note ---
Internal Medicine - PN: Subj *Date: 04/26/18 *Time: 21:07 (Please refer to the patient's delivery note which will be elusive as to her history as far as we know it and the delivery process.) Exam Vital signs and Labs for Last 24 Hours: Laboratory Results - last 24 hr 04/26/18 18:55: Urine Color Yellow, Urine Appearance Clear, Urine pH 7.0, Ur Specific [place] 1.015, Urine Protein Trace, Urine Glucose (UA) Negative, Urine Ketones 3+, Urine Blood Negative, Urine Nitrate Negative, Urine Bilirubin Negative, Urine Urobilinogen 1.0, Ur Leukocyte Esterase Trace, Urine RBC None, Ur Squamous Epith Cells 5-10, Urine Bacteria Trace 04/26/18 18:55: Urine Opiates Screen Negative, Urine Methadone Screen Negative, Ur Barbituates Screen Negative, Ur Phencyclidine Scrn Negative, Ur Amphetamines Screen Positive H, U Benzodiazepines Scrn Positive H, Urine Cocaine Screen Negative, U Marijuana (THC) Screen Positive H 04/26/18 19:27: Blood Type A Positive, Antibody Screen Negative 04/26/18 19:27: WBC 11.4 H, RBC 3.92 L, Hgb 10.1 L, Hct 31.1 L, MCV 79.4 L, MCH 25.9 L, MCHC 32.6, RDW 16.2, Plt Count 231, MPV 9.0, Neut % (Auto) 76.2, Lymph % (Auto) 17.4, [place] % (Auto) 4.2, Eos % (Auto) 1.9, Baso % (Auto) 0.3, Neut # ( Auto) 8.7 H, Lymph # (Auto) 2.0, [place] # (Auto) 0.5, Eos # (Auto) 0.2, Baso # ( Auto) 0.0 04/26/18 21:00: Cord ABG pH 7.30 L I & O for Last 24 hours: Intake & Output 04/24/18 04/25/18 04/26/18 04/27/18 11:59 11:59 11:59 11:59 Weight 123 lb 5.261 oz
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
[2018-04-27 00:33] VITALS: BP 152/91
[2018-04-27 02:58] LABS: Hematocrit 27.9 % (37.0-47.0)
[2018-04-27 03:14] LABS: Hemoglobin 8.9 g/dL (12.2-16.2)
--- NOTE | 2018-04-27 06:21 | Progress Note ---
Internal Medicine - PN: Subj *Date: 04/27/18 *Time: 06:19 (This is day #1. Patient is afebrile. Her vital signs are stable. Hemoglobin is 8.9 g, but she is clinically stable. Her abdomen is soft. Her lochia is normal. Her uterine fundus is involuting well. Going to start her on oral iron. The x-ray of her right hand reveals an acute fracture and going to consult orthopedics in that regard. telephone services sales representative has been notified about the patient's history. To this point the baby is not showing any withdrawal signs.) Exam Vital signs and Labs for Last 24 Hours: Temp Pulse Resp BP Pulse Ox 98.1 F 94 H 18 152/91 100 04/26/18 19:15 04/26/18 19:15 04/26/18 19:15 04/26/18 19:15 04/26/18 19:15 Laboratory Results - last 24 hr 04/26/18 18:55: Urine Color Yellow, Urine Appearance Clear, Urine pH 7.0, Ur Specific [place] 1.015, Urine Protein Trace, Urine Glucose (UA) Negative, Urine Ketones 3+, Urine Blood Negative, Urine Nitrate Negative, Urine Bilirubin Negative, Urine Urobilinogen 1.0, Ur Leukocyte Esterase Trace, Urine RBC None, Ur Squamous Epith Cells 5-10, Urine Bacteria Trace 04/26/18 18:55: Urine Opiates Screen Negative, Urine Methadone Screen Negative, Ur Barbituates Screen Negative, Ur Phencyclidine Scrn Negative, Ur Amphetamines Screen Positive H, U Benzodiazepines Scrn Positive H, Urine Cocaine Screen Negative, U Marijuana (THC) Screen Positive H 04/26/18 19:27: Blood Type A Positive, Antibody Screen Negative 04/26/18 19:27: WBC 11.4 H, RBC 3.92 L, Hgb 10.1 L, Hct 31.1 L, MCV 79.4 L, MCH 25.9 L, MCHC 32.6, RDW 16.2, Plt Count 231, MPV 9.0, Neut % (Auto) 76.2, Lymph % (Auto) 17.4, [place] % (Auto) 4.2, Eos % (Auto) 1.9, Baso % (Auto) 0.3, Neut # ( Auto) 8.7 H, Lymph # (Auto) 2.0, [place] # (Auto) 0.5, Eos # (Auto) 0.2, Baso # ( Auto) 0.0 04/26/18 21:00: Cord ABG pH 7.30 L 04/27/18 02:40: Hgb 8.9 L D, Hct 27.9 L I & O for Last 24 hours: Intake & Output 04/24/18 04/25/18 04/26/18 04/27/18 11:59 11:59 11:59 11:59 Weight 124 lb
--- NOTE | 2018-04-27 15:23 | Progress Note ---
Internal Medicine - PN: Subj *Date: 04/27/18 *Time: 15:22 (Patient is doing well. Her hand is wrapped in an Richard bandage, and orthopedic consultation is pending. The baby is doing well, showing no apparent signs of withdrawal as yet. director of consulting services consult is in process. Impression: Stable.) Exam Vital signs and Labs for Last 24 Hours: Temp Pulse Resp BP Pulse Ox 98.1 F 94 H 18 152/91 100 04/26/18 19:15 04/26/18 19:15 04/26/18 19:15 04/26/18 19:15 04/26/18 19:15 Laboratory Results - last 24 hr 04/26/18 18:55: Urine Color Yellow, Urine Appearance Clear, Urine pH 7.0, Ur Specific [place] 1.015, Urine Protein Trace, Urine Glucose (UA) Negative, Urine Ketones 3+, Urine Blood Negative, Urine Nitrate Negative, Urine Bilirubin Negative, Urine Urobilinogen 1.0, Ur Leukocyte Esterase Trace, Urine RBC None, Ur Squamous Epith Cells 5-10, Urine Bacteria Trace 04/26/18 18:55: Urine Opiates Screen Negative, Urine Methadone Screen Negative, Ur Barbituates Screen Negative, Ur Phencyclidine Scrn Negative, Ur Amphetamines Screen Positive H, U Benzodiazepines Scrn Positive H, Urine Cocaine Screen Negative, U Marijuana (THC) Screen Positive H 04/26/18 19:27: Blood Type A Positive, Antibody Screen Negative 04/26/18 19:27: WBC 11.4 H, RBC 3.92 L, Hgb 10.1 L, Hct 31.1 L, MCV 79.4 L, MCH 25.9 L, MCHC 32.6, RDW 16.2, Plt Count 231, MPV 9.0, Neut % (Auto) 76.2, Lymph % (Auto) 17.4, [place] % (Auto) 4.2, Eos % (Auto) 1.9, Baso % (Auto) 0.3, Neut # ( Auto) 8.7 H, Lymph # (Auto) 2.0, [place] # (Auto) 0.5, Eos # (Auto) 0.2, Baso # ( Auto) 0.0 04/26/18 21:00: Cord ABG pH 7.30 L 04/27/18 02:40: Hgb 8.9 L D, Hct 27.9 L I & O for Last 24 hours: Intake & Output 04/25/18 04/26/18 04/27/18 04/28/18 11:59 11:59 11:59 11:59 Weight 124 lb
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
--- NOTE | 2018-04-28 08:36 | Progress Note ---
Internal Medicine - PN: Subj *Date: 04/28/18 *Time: 08:34 (This is day 1-1. The patient is afebrile. Vital signs stable. Lochia normal. Uterine fundus involuting well. Dr. Alexander has seen the patient and place a soft cast on her left hand (she will follow-up with him). senior administrative services officer has been here and the baby will not be ultimately gone with the patient. The baby has required to stay at least another day. I will discharge the patient tomorrow.) Exam Vital signs and Labs for Last 24 Hours: Temp Pulse Resp BP Pulse Ox 98.1 F 94 H 18 152/91 100 04/26/18 19:15 04/26/18 19:15 04/26/18 19:15 04/26/18 19:15 04/26/18 19:15 I & O for Last 24 hours: Intake & Output 04/25/18 04/26/18 04/27/18 04/28/18 11:59 11:59 11:59 11:59 Weight 124 lb Assessment and Plan (1) Closed boxer's fracture Current visit: Yes Status: Acute Qualifiers: Encounter type: initial encounter Qualified Code(s): S62.339A - Displaced fracture of neck of unspecified metacarpal bone, initial encounter for closed fracture Category: Medical Code(s): S62.339A - Displaced fracture of neck of unspecified metacarpal bone, initial encounter for closed fracture
[2018-04-28 20:18] LABS: Basophils % 0.3 % (0.1-2.0); Eosinophils # 0.3 K/mm3 (0.0-0.4); Eosinophils % 3.1 % (0.1-12.0); Hematocrit 29.2 % (37.0-47.0); Hemoglobin 9.3 g/dL (12.2-16.2); Lymphocytes # 2.8 K/mm3 (0.7-4.5); Lymphocytes % 27.1 K/mm3 (10-50); Mean Corpuscular HGB Conc 31.9 g/dL (31.8-35.4); Mean Corpuscular Hemoglobin 25.4 pg (27.0-31.2); Mean Corpuscular Volume 79.7 fl (81-99); Mean Platelet Volume 7.9 fl (7.4-10.4); Monocytes # 0.4 K/mm3 (0.1-1.0); Monocytes % 3.5 % (1.7-9.3); Neutrophils # 6.8 K/mm3 (1.8-7.8); Neutrophils % 66.1 % (37.0-80.0); Platelet Count 295 K/mm3 (142-424); Red Blood Count 3.67 M/mm3 (4.20-5.40); Red Cell Distribution Width 16.8 % (11.5-17.5); White Blood Count 10.3 K/mm3 (4.8-10.8)
[2018-04-28 20:41] LABS: Appearance,Urine CLEAR (Clear); Bilirubin,Urine Negative (Negative); Blood, Urine 3+ (Negative); Color,Urine YELLOW (Yellow); Glucose,Urine (UA) Negative (Negative); Ketones,Urine Negative (Negative); Leukocyte Esterase,Urine 1+ (Negative); Microscopic, Urine URINE MICROSCOPIC (MICROSCOPIC); PH,Urine 7.5 (5.0-8.5); Protein,Urine Negative (Negative); Urobilinogen,Urine 0.2 EU/dl (0.2)
[2018-04-28 20:49] LABS: Amphetamine/Metha Screen,Urine Positive ng/mL (<1000); Barbiturates Screen,Urine Negative ng/mL (<200); Benzodiazepines Screen,Urine Negative ng/mL (<200); Cannabinoid Screen,Urine Positive ng/mL (<50); Cocaine Screen,Urine Negative ng/mL (<300); Methadone Screen,Urine Negative ng/mL (<300); Opiate Screen,Urine Negative ng/mL (<300); Phencyclidine Screen,Urine Negative ng/mL (<25)
[2018-04-28 20:50] LABS: Bacteria,Urine 1+ /lpf
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
[2018-04-30 11:43] LABS: HIV Screen 4th Generation wRfx Non Reactive (Non Reactive); Hepatitis B Surface Antigen Negative (Negative); Rapid Plasma Reagin Ab Titer Non Reactive (NonRea<1:1)
== END 2018-04-29 06:15 | disposition home or self-care (01) ==
LOC: OBOUT 18:42 → OB 18:45 → UNDODISIN 04-29 06:15
PROVIDERS: ADMIT Obstetrics & Gynecology; ATTEND Obstetrics & Gynecology